=== PATIENT | male | born 1970 | race Hispanic/Latino ===

== ENCOUNTER 2021-05-11 08:41 | Emergency (ER) | payer BC ==
[2021-05-11] MEDS ORDERED: ROCURONIUM 50 MG/5 ML VIAL IV ONE (08:42)
[2021-05-11] MEDS ORDERED: ETOMIDATE 20 MG/10 ML VIAL IV ONE (08:42)
[2021-05-11] MEDS ORDERED: SUCCINYLCHOLINE 20 MG/ML (10 ML) IV ONE (08:42)
[2021-05-11] MEDS ORDERED: LIDOCAINE 2% MPF 5 ML VIAL IJ ONE (08:42)
[2021-05-11] MEDS ORDERED: FOLIC ACID 5 MG/ML VIAL ONE (09:01)
[2021-05-11] MEDS ORDERED: NA CHLORIDE 0.9% 1,000 ML ONE ×2 (09:01→09:07)
[2021-05-11] MEDS ORDERED: Nicardipine/NS 25 MG/250 ML KIT IV ONE (09:07)
--- NOTE | 2021-05-11 09:12 | RAD REPORT ---
EXAM DESCRIPTION: CT - Ct Stroke Brain Wo Cont - 05/11/2021 9:01 am CLINICAL HISTORY: Slurred speech COMPARISON: none TECHNIQUE: Computed axial tomography of the head was obtained. All CT scans are performed using dose optimization technique as appropriate and may include automated exposure control or mA/KV adjustment according to patient size. FINDINGS: 21 millimeter right basal ganglia bleed. Shift of midline structures 3 millimeters to the left. The ventricles are normal in caliber. No extra-axial fluid collection is noted. Fluid within the sinuses/ mastoids is not seen. IMPRESSION: 21 millimeter right basal ganglia bleed Dr Estevez of the emergency room notified 9:03 a.m. on May 11, 2021
[2021-05-11 09:17] LABS: Hematocrit 47.2 % (39.6-49.0); MPV 8.9 fL (7.6-11.3); RBC Red Blood Cell Count 5.54 M/uL (4.33-5.43)
[2021-05-11] MEDS ORDERED: LORazepam 2 MG/ML VIAL ONE (09:17)
[2021-05-11 09:22] LABS: Protime INR 0.96
--- NOTE | 2021-05-11 09:22 | RAD REPORT ---
EXAM DESCRIPTION: Windy Single View05/11/2021 9:15 am CLINICAL HISTORY: cva COMPARISON: none FINDINGS: The lungs appear clear of acute infiltrate. The heart is normal size IMPRESSION: No acute abnormalities displayed
--- NOTE | 2021-05-11 09:39 | EDPHYS ---
Physician Documentation [facility] Name: Savage Miranda Age: 51 yrs Sex: Male : 1970 Arrival Date: 05/11/2021 Time: 08:43 Bed 2 Private MD: ED Physician Alexis Estevez HPI: 05/11 09:23 This 51 yrs old Male presents to ER via Wheelchair with complaints of Trouble benson Talking. 09:23 The patient presents to the emergency department with weakness of the left upper benson extremity, that is mild, left lower extremity, a speech or higher order brain function problem, aphasia, that is moderate, difficulty standing, the patient is off balance, difficult walking, the patient falls to the left, a swallowing problem, difficulty. Onset: The symptoms/episode began/occurred just prior to arrival, this morning. Context: occurred at home. Associated signs and symptoms: Pertinent positives: headache, weakness. Severity of symptoms: At their worst the symptoms were moderate in the emergency department the symptoms are unchanged. Patient's baseline: Neuro: alert and fully oriented, Motor: left-sided weakness, Speech: slow, The patient has a previous history of dm, htn untreated. Current symptoms: dysphasia, paralysis or paresis, of the left arm and left leg, that is moderate. The patient has not experienced similar symptoms in the past. Historical: - Allergies: 09:09 No Known Allergies; ll1 - PMHx: 09:09 Diabetes - IDDM; Hypertension; ll1 - Immunization history:: Adult Immunizations up to date. - Social history:: Smoking status: unknown. - Family history:: not pertinent. - Hospitalizations: : No recent hospitalization is reported. ROS: 09:23 Constitutional: Negative for fever, chills, and weight loss, Eyes: Negative for injury, benson pain, redness, and discharge, ENT: Negative for injury, pain, and discharge, Neck: Negative for injury, pain, and swelling, Cardiovascular: Negative for chest pain, palpitations, and edema, Respiratory: Negative for shortness of breath, cough, wheezing, and pleuritic chest pain, Abdomen/GI: Negative for abdominal pain, nausea, vomiting, diarrhea, and constipation, Back: Negative for injury and pain, : Negative for injury, bleeding, discharge, and swelling, MS/Extremity: Negative for injury and deformity, Skin: Negative for injury, rash, and discoloration, Psych: Negative for depression, anxiety, suicide ideation, homicidal ideation, and hallucinations, Allergy/Immunology: Negative for hives, rash, and allergies, Endocrine: Negative for neck swelling, polydipsia, polyuria, polyphagia, and marked weight changes, Hematologic/Lymphatic: Negative for swollen nodes, abnormal bleeding, and unusual bruising. 09:23 Neuro: Positive for headache, weakness, of the left arm and left leg. Exam: :23 Constitutional: This is a well developed, well nourished patient who is awake, alert, benson and in no acute distress. Head/Face: Normocephalic, atraumatic. Eyes: Pupils equal round and reactive to light, extra-ocular motions intact. Lids and lashes normal. Conjunctiva and sclera are non-icteric and not injected. Cornea within normal limits. Periorbital areas with no swelling, redness, or edema. ENT: Nares patent. No nasal discharge, no septal abnormalities noted. Tympanic membranes are normal and external auditory canals are clear. Oropharynx with no redness, swelling, or masses, exudates, or evidence of obstruction, uvula midline. Mucous membranes moist. Neck: Trachea midline, no thyromegaly or masses palpated, and no cervical lymphadenopathy. Supple, full range of motion without nuchal rigidity, or vertebral point tenderness. No Meningismus. Chest/axilla: Normal chest wall appearance and motion. Nontender with no deformity. No lesions are appreciated. Cardiovascular: Regular rate and rhythm with a normal S1 and S2. No gallops, murmurs, or rubs. Normal PMI, no JVD. No pulse deficits. Respiratory: Lungs have equal breath sounds bilaterally, clear to auscultation and percussion. No rales, rhonchi or wheezes noted. No increased work of breathing, no retractions or nasal flaring. Abdomen/GI: Soft, non-tender, with normal bowel sounds. No distension or tympany. No guarding or rebound. No evidence of tenderness throughout. Back: No spinal tenderness. No costovertebral tenderness. Full range of motion. Male : Normal genitalia with no discharge or lesions. Skin: Warm, dry with normal turgor. Normal color with no rashes, no lesions, and no evidence of cellulitis. Psych: Awake, alert, with orientation to person, place and time. Behavior, mood, and affect are within normal limits. 09:23 ECG was reviewed by the Attending Physician. Vital Signs: 09:10 BP 198 / 122; Pulse 68; Resp 14; Pulse Ox 99% on R/A; ph 09:10 Weight 112.49 kg; ph 09:33 BP 163 / 101; Pulse 93; Resp 13; Temp 97.9; Pulse Ox 99% on 2 lpm NC; jl7 09:40 BP 169 / 111; Pulse 102; Resp 18; Pulse Ox 99% ; jl7 09:45 BP 157 / 103; Pulse 93; Resp 19; Pulse Ox 99% ; jl7 09:50 BP 171 / 108; Pulse 100; Resp 22; Pulse Ox 100% ; jl7 10:15 BP 167 / 101; Pulse 94; Resp 18; Pulse Ox 100% on ETT vent; ph NIH Stroke Scale Scores: 09:05 NIHSS Score: 6 jl7 09:40 NIHSS Score: 7 benson Rowdy Coma Score: 09:26 Eye Response: to voice(3). Verbal Response: confused(4). Motor Response: obeys jl7 commands(6). Total: 13. MDM: 08:49 Patient medically screened. benson 09:23 Data reviewed: vital signs, nurses notes, lab test result(s), EKG, radiologic studies, benson doppler, plain films. Data interpreted: hall monitor: rate is 68 beats/min, rhythm is regular, Pulse oximetry: on room air is 99 %. Test interpretation: by ED physician or midlevel provider: ECG, plain radiologic studies. Counseling: I had a detailed discussion with the patient and/or guardian regarding: the historical points, exam findings, and any diagnostic results supporting the discharge/admit diagnosis, lab results. 05/11 08:53 Order name: Basic Metabolic Panel [facility] 05/11 08:53 Order name: CBC with Diff 05/11 08:53 Order name: Magnesium 05/11 08:53 Order name: Protime (+inr) 05/11 08:53 Order name: Ptt, Activated; Complete Time: 09:41 05/11 08:53 Order name: LFT's; Complete Time: 10:22 05/11 08:53 Order name: NT PRO-BNP; Complete Time: 10:22 05/11 08:53 Order name: Troponin HS; Complete Time: 10:22 [facility] 05/11 08:53 Order name: SARS-COV-2 RT PCR (Document "Date of Onset" if Symptomatic); Complete Time: benson 10:05/11 08:53 Order name: Basic Metabolic Panel; Complete Time: 10:22 EDMS 05/11 08:53 Order name: CBC with Automated Diff; Complete Time: 09:41 EDMS 05/11 08:53 Order name: Magnesium; Complete Time: 10:22 EDMS 05/11 08:53 Order name: Protime (+INR); Complete Time: 09:41 EDMS 05/11 09:21 Order name: Glucose, Ancillary Testing; Complete Time: 09:41 EDMS 05/11 08:53 Order name: CT Stroke Brain w/o Contrast; Complete Time: 09:41 [facility] 05/11 08:53 Order name: Stroke CXR 1 View; Complete Time: 09:41 [facility] 05/11 08:53 Order name: EKG; Complete Time: 08:54 [facility] 05/11 08:53 Order name: Accucheck; Complete Time: 09:09 05/11 08:53 Order name: Cardiac monitoring; Complete Time: 09:09 [facility] 05/11 10:13 Order name: CXR XRAY jl7 05/11 08:53 Order name: EKG - Nurse/Tech; Complete Time: 09:09 05/11 08:53 Order name: IV Saline Lock; Complete Time: 09:09 05/11 08:53 Order name: Labs collected and sent; Complete Time: 09:09 [facility] 05/11 08:53 Order name: NPO; Complete Time: 08:56 benson 05/11 08:53 Order name: O2 Per Protocol; Complete Time: 08:56 [facility] 05/11 08:53 Order name: O2 Sat Monitoring; Complete Time: 08:56 [facility] 05/11 08:53 Order name: Stroke Swallow Screen; Complete Time: 09:24 benson 05/11 09:07 Order name: IV Saline Lock - Large Bore; Complete Time: 09:24 [facility] 05/11 09:10 Order name: [place]; Complete Time: 10:30 [facility] EC:23 Rate is 70 beats/min. QRS [place] is Normal. [place] interval is normal. QRS interval is benson normal. QT interval is normal. No Q waves. T waves are Normal. No ST changes noted. Clinical impression: NSR w/ Non-specific ST/T Changes and No evidence of ischemia. Interpreted by me. Reviewed by me. Administered Medications: :08 Not Given (Duplicate Order): NS 0.9% 1000 ml IV at 1 bolus Per protocol; 1000 mL bolus benson 09:10 Drug: Cardene (niCARdipine) 5 mg/min Route: IV; Rate: per protocol; Site: right forearm;jl7 09:20 Follow up: Rate change 7.5 mg/hr jl7 10:01 Follow up: IV Status: Infusion continued upon transfer jl7 09:15 Drug: Ativan (LORazepam) 0.5 mg Route: IVP; Site: left forearm; ph 10:32 Follow up: Response: No adverse reaction ph 09:20 Drug: foLIC Acid 1 mg Route: IVPB; Site: left forearm; jl7 09:25 Follow up: Response: No adverse reaction; IV Status: Completed infusion jl7 09:20 Drug: NS 0.9% 1000 ml Route: IV; Rate: 75 ml/hr; Site: left forearm; jl7 10:01 Follow up: IV Status: Infusion continued upon transfer jl7 10:07 Drug: Etomidate 20 mg Route: IVP; Site: left forearm; ph 10:31 Follow up: Response: No adverse reaction; Patient is sedated ph 10:07 Drug: Rocuronium 90 mg Route: IVP; Site: left forearm; ph 10:30 Follow up: Response: No adverse reaction ph 10:15 Drug: Versed (midazolam) 4 mg Route: IVP; Site: left forearm; ph 10:31 Follow up: Response: No adverse reaction; Patient is sedated ph 10:27 Not Given (Other Intervention Used): Lidocaine 100 mg IVP once ph 10:28 Not Given (Other Intervention Used): Succinylcholine 100 mg IVP once ph Point of Care Testing: Blood Glucose: : Blood Glucose: 238 mg/dL; jl7 Ranges: Critical Glucose Levels:Adult <50 mg/dl or >400 mg/dl <40 mg/dl or >180 mg/dl Disposition Summary: 05/11/21 09:38 Transfer Ordered Transfer Location: [facility] benson Reason: Higher level of care benson Condition: Serious benson Problem: new benson Symptoms: have improved benson Accepting Physician: to dr koch(05/11/21 10:35) ph Diagnosis - Nontraumatic intracerebral hemorrhage, unspecified - right BG, 21 MM WITH 3 MM SHIFTcha - Essential (primary) hypertension benson - Type 1 diabetes mellitus with hyperglycemia benson - Obesity, unspecified benson Forms: - Medication Reconciliation Form benson - SBAR form benson NIH Stroke Scale - NIH Stroke Score Date: 05/11/2021 Time: 09:05 Total Score = 6 1a. Level of Consciousness (LOC) - 1(Not Alert) 1b. Level of Consciousness (LOC) (Month \\T\\ Age) - 1(One) 1c. LOC Commands (Open \\T\\ Closes Eyes/Product Safety Lead) - 0(Both) 2. Best Gaze (Lateral Gaze Paresis) - 0(Normal) 3. Visual Field Loss - 0(No visual loss) 4. Facial Palsy - 0(Normal) 5a. Left Arm: Motor (10-second hold) - 0(No drift) 5b. Right Arm: Motor (10-second hold) - 0(No drift) 6a. Left Leg: Motor (5-second hold - always test supine) - 0(No drift) 6b. Right Leg: Motor (5-second hold - always test supine) - 0(No drift) 7. Limb Ataxia (finger/nose \\T\\ heel/ortega - test with eyes open) - 0(Absent) 8. Sensory Loss (pinprick arms/legs/face) - 0(Normal) 9. Best Language: Aphasia (description/naming/reading) - 2(Severe aphasia) 10. Dysarthria (speech clarity - read or repeat words) - 2(Severe) 11. Extinction and Inattention (visual/tactile/auditory/spatial/personal) - 0(No abnormality) Initials: jl7 NIH Stroke Scale - NIH Stroke Score Date: 05/11/2021 Time: 09:40 Total Score = 7 1a. Level of Consciousness (LOC) - 0(Alert) 1b. Level of Consciousness (LOC) (Month \\T\\ Age) - 0(Both) 1c. LOC Commands (Open \\T\\ Closes Eyes/Product Safety Lead) - 0(Both) 2. Best Gaze (Lateral Gaze Paresis) - 0(Normal) 3. Visual Field Loss - 0(No visual loss) 4. Facial Palsy - 0(Normal) 5a. Left Arm: Motor (10-second hold) - 2(Drift, some effort against gravity) 5b. Right Arm: Motor (10-second hold) - 0(No drift) 6a. Left Leg: Motor (5-second hold - always test supine) - 1(Drift) 6b. Right Leg: Motor (5-second hold - always test supine) - 0(No drift) 7. Limb Ataxia (finger/nose \\T\\ heel/ortega - test with eyes open) - 2(Present in two limbs) 8. Sensory Loss (pinprick arms/legs/face) - 0(Normal) 9. Best Language: Aphasia (description/naming/reading) - 1(Mild to moderate aphasia) 10. Dysarthria (speech clarity - read or repeat words) - 1(Mild to Moderate) 11. Extinction and Inattention (visual/tactile/auditory/spatial/personal) - 0(No abnormality) Initials: benson Signatures: Dispatcher [employer] Alexis Casey MD MD cha Hall, Patricia RN RN ph Alex Abdi RN RN jl7 Carolina Sanon RN RN ll1 Corrections: (The following items were deleted from the chart) 10:24 09:[address] august knowles cha 10:35 10:[address] august knowles
--- NOTE | 2021-05-11 09:39 | ER ---
Nurse's Notes [facility] Name: Savage Miranda Age: 51 yrs Sex: Male : 1970 Arrival Date: 05/11/2021 Time: 08:43 Bed 2 Private MD: Diagnosis: Nontraumatic intracerebral hemorrhage, unspecified-right BG, 21 MM WITH 3 MM SHIFT;Essential (primary) hypertension;Type 1 diabetes mellitus with hyperglycemia;Obesity, unspecified Presentation: 05/11 09:00 Chief complaint: Brother stated pt having difficulty talking began around 7 am this vg1 morning. Upon viewing pt, pt appears to have left sided facial droop and left side weakness. pt also appears to be drooling. 09:10 Ebola Screen: Patient denies travel to an Ebola-affected area in the 21 days before ll1 illness onset. Risk Assessment: Do you want to hurt yourself or someone else? Patient reports no desire to harm self or others. Onset of symptoms was May 11, 2021. 09:10 Acuity: SENTHIL 2 ll1 09:10 Method Of Arrival: Wheelchair [facility] 09:13 Coronavirus screen:. An acute neurological deficit is present. The patient has been ph moved to a treatment area. Pre-hospital glucose is not applicable to this patient. Initial Sepsis Screen: Does the patient meet any 2 criteria? No. Patient's initial sepsis screen is negative. Does the patient have a suspected source of infection? No. Patient's initial sepsis screen is negative. Triage Assessment: 09:00 The onset of the patients symptoms was more than three but less than six hours ago. vg1 General: Appears uncomfortable, Behavior is cooperative. Pain: Denies pain. EENT: pt appears to be drooling. Neuro: Level of Consciousness is awake, alert, obeys commands, Oriented to person, place, situation. Neuro: Hardwood Floor Layer are weak on left Gait is unsteady, Speech is slurred, Facial droop on left, Denies headache. 09:00 The onset of the patients symptoms was at an unknown time. jl7 Stroke Activation: Symptom onset > 6 hours Physician: Stroke Attending; Name: ; Notified At: ; Arrived At: Physician: Chief Stroke Resident; Name: ; Notified At: ; Arrived At: Physician: Stroke Resident; Name: ; Notified At: ; Arrived At: Physician: ED Attending; Name: Herb; Notified At: 09:00; Arrived At: Physician: ED Resident; Name: ; Notified At: ; Arrived At: Historical: - Allergies: 09:09 No Known Allergies; ll1 - PMHx: 09:09 Diabetes - IDDM; Hypertension; ll1 - Immunization history:: Adult Immunizations up to date. - Social history:: Smoking status: unknown. - Family history:: not pertinent. - Hospitalizations: : No recent hospitalization is reported. Screenin:13 Abuse screen: Denies threats or abuse. Denies injuries from another. Nutritional ph screening: No deficits noted. Tuberculosis screening: No symptoms or risk factors identified. Fall Risk No fall in past 12 months (0 pts). No secondary diagnosis (0 pts). IV access (20 points). Ambulatory Aid- None/Bed Rest/Nurse Assist (0 pts). Gait- Weak (10 pts.). Mental Status- Overestimates/Forgets Limitations (15 pts.). Total Montes Fall Scale indicates High Risk Score (45 or more points). Fall prevention measures have been instituted. Side Rails Up X 2 Placed Close to Nursing Station Frequent Obs/Assessments Occuring Family Present and informed to notify staff if the need to leave the bedside As available patient and family educated on Fall Prevention Program and Strategies. 09:25 The patient has not been NPO before screening. The patient is currently on the jl7 following diet: home The patient is alert, able to follow commands. The patient exhibits slurred or garbled speech. The patient is exhibiting difficulty speaking. The patient does not exhibit difficulty understanding words. The patient is unable to swallow own secretions without drooling or the need for suction. Bedside swallow screening discontinued. Patient kept NPO until cleared by Speech Therapy or Physician. The patient failed the bedside swallow screening. The patient will be kept NPO until cleared by Speech Therapy or Physician. Provider notified of bedside swallow screening results: Alexis Estevez MD. Assessment: 09:05 VAN Scoring: Arm Drift: Patients demonstrates NO arm weakness. Patient is VAN Negative. jl7 09:10 General: Appears distressed, Behavior is anxious, drowsy. Neuro: Level of Consciousness jl7 is lethargic, Oriented to person, Speech is slurred. Cardiovascular: Patient's skin is warm and dry. Rhythm is regular. Respiratory: Airway Respiratory effort is even, pt with snoring respirations noted, nasal trumpet inserted by RT, ABI Aware Respiratory pattern is symmetrical, snoring. Derm: Skin is pink, warm \T\ dry. 09:11 Patient has been NPO before screening. The patient is not alert and/or unable to follow ph commands. The patient exhibits slurred or garbled speech. The patient is exhibiting difficulty speaking. The patient does not exhibit difficulty understanding words. The patient is unable to swallow own secretions without drooling or the need for suction. Bedside swallow screening discontinued. Patient kept NPO until cleared by Speech Therapy or Physician. not given, eval stopped, see above not given, eval stopped, see above The patient failed the bedside swallow screening. The patient will be kept NPO until cleared by Speech Therapy or Physician. Provider notified of bedside swallow screening results: Alexis Estevez MD. T-PA (Activase) Screening: Contraindications: Intracranial hemorrhage and its risk factor and suspicion of subarachnoid bleed: Yes. 09:50 Reassessment: Pt continues with snoring respirations, ERD notified and at bedside. jl7 09:59 Reassessment: [facility] at bedside to transport pt. jl7 10:04 Reassessment: Dr. Estevez and [facility] paramedics preparing for intubation. jl7 10:26 Reassessment: Pt transferred by [facility] to [facility], intubated and sedated. ph Vital Signs: 09:10 BP 198 / 122; Pulse 68; Resp 14; Pulse Ox 99% on R/A; ph 09:10 Weight 112.49 kg; ph 09:33 BP 163 / 101; Pulse 93; Resp 13; Temp 97.9; Pulse Ox 99% on 2 lpm NC; jl7 09:40 BP 169 / 111; Pulse 102; Resp 18; Pulse Ox 99% ; jl7 09:45 BP 157 / 103; Pulse 93; Resp 19; Pulse Ox 99% ; jl7 09:50 BP 171 / 108; Pulse 100; Resp 22; Pulse Ox 100% ; jl7 10:15 BP 167 / 101; Pulse 94; Resp 18; Pulse Ox 100% on ETT vent; ph [place] Coma Score: 09:26 Eye Response: to voice(3). Verbal Response: confused(4). Motor Response: obeys jl7 commands(6). Total: 13. NIH Stroke Scale Scores: 09:05 NIHSS Score: 6 jl7 09:40 NIHSS Score: 7 [facility] ED Course: 08:43 Patient arrived in ED. rg4 08:44 Alexis Estevez MD is Attending Physician. [facility] 08:49 Alex Abdi, PAUL is Primary Nurse. jl7 09:00 CT Stroke Brain w/o Contrast In Process Unspecified. EDMS 09:00 Patient has correct armband on for positive identification. Bed in low position. Call [facility] light in reach. Side rails up X2. telemetry monitor on. Pulse ox on. NIBP on. 09:05 Initial lab(s) drawn, by ED staff, sent to lab. Inserted saline lock: 20 gauge in left ph forearm, using aseptic technique. Blood collected. 09:[address] Estevez with JUSTIN Rubio from the [facility]. eb 09:05 initiated a transfer with Jerry Ledesma from the [facility]. eb 09:07 Initial lab(s) drawn, by nc, sent to lab. Inserted saline lock: 20 gauge in left dh3 forearm, using aseptic technique. Blood collected. 09:[address] Feliz the neuro sharepoint solutions developer with Dr. Estevez for patient transfer eb consultation. 09:09 Missed attempt(s): 18 gauge in right antecubital area. Bleeding controlled, band aid ph applied, catheter tip intact. Inserted saline lock: 20 gauge in right forearm, using aseptic technique. 09:10 Triage completed. ll1 09:10 Arm band placed on Patient placed in an exam room, on a stretcher. ll1 09:10 [facility]. Estevez [facility] Neuro will eb take patient. 09:14 Stroke CXR 1 View In Process Unspecified. EDMS 09:14 Patient has correct armband on for positive identification. Bed in low position. Call light in reach. Side rails up X2. telemetry monitor on. Pulse ox on. NIBP on. 09:16 per JUSTIN Rubio at the transfer center he's having to get his AOC involved there is no ICU eb beds ER holding admissions to try somewhere else in the mean time. 09:17 reinitiated the transfer with Jerry Ledesma Rn from the [facility].eb 09:25 JUSTIN Rubio from the [facility] called to decline the patient in transfer. eb 09:26 connected the stroke team sharepoint solutions developer for [facility] with Dr. Estevez for patient transfer consultation. 09:30 administrative approval given by Jerry Ledesma Rn/ patient has been accepted to [facility] Stroke Unit. Dr. Bethel Redding has accepted the patient in transfer/ report to be called to [phone]. 10:12 Assisted provider with intubation using 7.5 mm ETT via oral route. ET tube secured at ph 25cm at the teeth. Set up intubation tray. Intubated by Alexis Estevez MD Placement verified by CO2 detector w/ + color change, auscultating bilateral breath sounds, End-tidal CO2 montioring Patient tolerated well. Patient transferred, IV remains in place. 10:15 NGT: inserted 16 Fr. via left nare. verified placement of air over stomach, to ph intermittent suction. 10:34 CXR XRAY In Process Unspecified. EDMS Administered Medications: 09:08 Not Given (Duplicate Order): NS 0.9% 1000 ml IV at 1 bolus Per protocol; 1000 mL bolus benson 09:10 Drug: Cardene (niCARdipine) 5 mg/min Route: IV; Rate: per protocol; Site: right forearm;7 09:20 Follow up: Rate change 7.5 mg/hr jl7 10:01 Follow up: IV Status: Infusion continued upon transfer jl 09:15 Drug: Ativan (LORazepam) 0.5 mg Route: IVP; Site: left forearm; ph 10:32 Follow up: Response: No adverse reaction ph 09:20 Drug: foLIC Acid 1 mg Route: IVPB; Site: left forearm; jl7 09:25 Follow up: Response: No adverse reaction; IV Status: Completed infusion jl7 09:20 Drug: NS 0.9% 1000 ml Route: IV; Rate: 75 ml/hr; Site: left forearm; jl7 10:01 Follow up: IV Status: Infusion continued upon transfer jl 10:07 Drug: Etomidate 20 mg Route: IVP; Site: left forearm; ph 10:31 Follow up: Response: No adverse reaction; Patient is sedated ph 10:07 Drug: Rocuronium 90 mg Route: IVP; Site: left forearm; ph 10:30 Follow up: Response: No adverse reaction ph 10:15 Drug: Versed (midazolam) 4 mg Route: IVP; Site: left forearm; ph 10:31 Follow up: Response: No adverse reaction; Patient is sedated ph 10:27 Not Given (Other Intervention Used): Lidocaine 100 mg IVP once ph 10:28 Not Given (Other Intervention Used): Succinylcholine 100 mg IVP once ph Point of Care Testing: Blood Glucose: 09:15 Blood Glucose: 238 mg/dL; jl7 Ranges: Outcome: 09:38 ER care complete, transfer ordered by . benson 10:35 Transferred by helicopter to [facility], Transfer form completed. X-rays sent ph w/ patient. 10:35 Condition: stable 10:35 Instructed on the need for transfer. 10:35 Patient left the ED. ph NIH Stroke Scale - NIH Stroke Score Date: 05/11/2021 Time: 09:05 Total Score = 6 1a. Level of Consciousness (LOC) - 1(Not Alert) 1b. Level of Consciousness (LOC) (Month \T\ Age) - 1(One) 1c. LOC Commands (Open \T\ Closes Eyes/Screen Tender) - 0(Both) 2. Best Gaze (Lateral Gaze Paresis) - 0(Normal) 3. Visual Field Loss - 0(No visual loss) 4. Facial Palsy - 0(Normal) 5a. Left Arm: Motor (10-second hold) - 0(No drift) 5b. Right Arm: Motor (10-second hold) - 0(No drift) 6a. Left Leg: Motor (5-second hold - always test supine) - 0(No drift) 6b. Right Leg: Motor (5-second hold - always test supine) - 0(No drift) 7. Limb Ataxia (finger/nose \T\ heel/otrega - test with eyes open) - 0(Absent) 8. Sensory Loss (pinprick arms/legs/face) - 0(Normal) 9. Best Language: Aphasia (description/naming/reading) - 2(Severe aphasia) 10. Dysarthria (speech clarity - read or repeat words) - 2(Severe) 11. Extinction and Inattention (visual/tactile/auditory/spatial/personal) - 0(No abnormality) Initials: jl7 NIH Stroke Scale - NIH Stroke Score Date: 05/11/2021 Time: 09:40 Total Score = 7 1a. Level of Consciousness (LOC) - 0(Alert) 1b. Level of Consciousness (LOC) (Month \T\ Age) - 0(Both) 1c. LOC Commands (Open \T\ Closes Eyes/Screen Tender) - 0(Both) 2. Best Gaze (Lateral Gaze Paresis) - 0(Normal) 3. Visual Field Loss - 0(No visual loss) 4. Facial Palsy - 0(Normal) 5a. Left Arm: Motor (10-second hold) - 2(Drift, some effort against gravity) 5b. Right Arm: Motor (10-second hold) - 0(No drift) 6a. Left Leg: Motor (5-second hold - always test supine) - 1(Drift) 6b. Right Leg: Motor (5-second hold - always test supine) - 0(No drift) 7. Limb Ataxia (finger/nose \T\ heel/ortega - test with eyes open) - 2(Present in two limbs) 8. Sensory Loss (pinprick arms/legs/face) - 0(Normal) 9. Best Language: Aphasia (description/naming/reading) - 1(Mild to moderate aphasia) 10. Dysarthria (speech clarity - read or repeat words) - 1(Mild to Moderate) 11. Extinction and Inattention (visual/tactile/auditory/spatial/personal) - 0(No abnormality) Initials: benson Signatures: Dispatcher [employer] Alexis Casey MD MD cha Hall, Patricia RN Zhanna Spence ph rg4 Alex Abdi RN RN jl7 Bonita Paredes 3 Maggie Simental Victoria RN RN vg1 Carolina Sanon RN RN ll1 Corrections: (The following items were deleted from the chart) 10:32 09:08 Ativan (LORazepam) 0.5 mg IVP in left forearm ph ph
[2021-05-11 09:45] LABS: ALT/SGPT 41 U/L (12-78); AST/SGOT 12 U/L (15-37); Albumin 3.8 g/dL (3.4-5.0); Alkaline Phosphatase 158 U/L (45-117); BUN Blood Urea Nitrogen 16 mg/dL (7-18); Bicarbonate 27 mmol/L (21-32); Bilirubin Direct 0.1 mg/dL (0-0.2); Bilirubin Total 0.6 mg/dL (0.2-1.0); Glucose Level 226 mg/dL (74-106); Magnesium 2.1 mg/dL (1.8-2.4); NT PRO-BNP 35 pg/mL (<125); Potassium 3.5 mmol/L (3.5-5.1); Protein, Total 7.8 g/dL (6.4-8.2); Sodium Level 138 mmol/L (136-145)
[2021-05-11] MEDS ORDERED: RSI MEDICATION KIT IV ONE (09:46)
[2021-05-11] MEDS ORDERED: MIDAZOLAM HCL 2 MG/2 ML INJ ONE (09:48)
[2021-05-11] MEDS ORDERED: LEVETIRACETAM 500 MG/5 ML VIAL IV ONE (09:49)
[2021-05-11] MEDS ORDERED: NA CHLORIDE 0.9% 100 ML ONE (09:50)
--- NOTE | 2021-05-11 10:41 | RAD REPORT ---
EXAM DESCRIPTION: Windy Single View05/11/2021 10:34 am CLINICAL HISTORY: Device placement endotracheal tube placement IMPRESSION: An endotracheal tube has been inserted with its tip well 1.7 centimeters above the kyle a. Nasogastric tube is been placed into the stomach
[2021-05-11 10:58] VITALS: TEMP 97.9
[2021-05-11 11:26] VITALS: BP 171/108; O2SAT 100
== END 2021-05-11 10:35 | disposition short-term general hospital (02) ==
LOC: ER 08:41
DX: I61.9 Nontraumatic intracerebral hemorrhage, unspecified (principal); I10 Essential (primary) hypertension; E10.65 Type 1 diabetes mellitus with hyperglycemia; E66.9 Obesity, unspecified; R29.706 NIHSS score 6; Z20.822 Contact with and (suspected) exposure to COVID-19
CPT/HCPCS: 96365; 93005; 85025; 80048; 36415; 83735; 85610; 82947; 80076; 85730; 84484; 83880; 70450; 71045 ×2; 31500; 96375; 99285; U0003; J0330; J2250; J1953; J7030 ×2

== ENCOUNTER 2021-05-23 09:39 | Inpatient (IN) | payer BC ==
--- NOTE | 2021-06-07 16:00 | R.PREADM ---
PRE-ADMISSION SCREENING FORM SCREENING DATE AND TIME 06/07/2021 14:45 (LICENSING DIRECTOR) ANTICIPATED REHAB ADMISSION DATE 06/07/2021 REFERRING FACILITY [facility] REFERRAL DATE AND TIME 05/21/2021 14:45 (LICENSING DIRECTOR) REFERRAL ROOM# [id number] ACUTE ADMIT DATE 05/11/2021 HOSPITALIZED IN LAST 60 DAYS? 05/11/21 Previous Rehabilitation(s): No. ACUTE [employer] GUIDANCE COUNSELOR/DC INDUSTRIAL MAINTENANCE TECH [place] ATTENDING PHYSICIAN KEATON JETER MD REFERRING PHYSICIAN KEATON JETER MD REHAB FACILITY [facility] CLINICAL LIAISON Marques Galeano PHYSICIAN REVIEWER Dr. Arun Clements M.D. MR# [id number] NAME SANJUANA SANTORO ADDRESS [address] [facility] PHONE [facility] [address] DATE OF 1970 AGE 51 SSN# [id number] GENDER male MARITAL STATUS PREF. LANGUAGE (IF NON-LAO) BELARUSIAN ADMIT FROM 02 [facility] PRE-HOSPITAL LIVING SETTING 01 - Home (private home/apt. board/care, assisted living, long term, transitional living) HOME TYPE AND DETAILS Type of home: single family house # of steps to enter the residence: 0 # of steps within the residence: 0 # of levels in the residence: 1 PRE-HOSPITAL LIVING WITH Family/Relatives FAMILY SUPPORT Yes PRIMARY FAMILY CONTACT NAME Betina Bowman PRIMARY FAMILY CONTACT PHONE PRIMARY FAMILY CONTACT RELATIONSHIP Spouse PHONE PRIMARY FAMILY CONTACT ON ADM.? no IS PRIMARY FAMILY CONTACT AUTH. REP.? no 1ST EMERGENCY CONTACT Betina Bowman 1ST CONTACT PHONE 1ST CONTACT RELATIONSHIP Spouse PHONE 1ST CONTACT ON ADM. no IS 1ST CONTACT AUTH. REP.? no PHONE 2ND CONTACT ON ADM.? no PATIENT EMPLOYMENT STATUS Employed [employer] PAYOR INFORMATION: 1ST PAYOR NAME [employer] [facility] 1ST PAYOR PHONE [phone] 1ST PAYOR INJURY/ILLNESS DUE TO ACCIDENT? No ANOTHER [employer] RESPONSIBLE? No PRIMARY REHAB/ACUTE DIAGNOSIS: STROKE ONSET DATE 05/11/2021 REHAB IMPAIRMENT CATEGORY (THAO): 01 Stroke (STR) MEETS 60% rule AFFECTED EXTREMITIES: RLE, and RUE PRIMARY DIAGNOSIS-RELATED SURGERIES: TRACHEOSTOMY MICROLARYNGOSCOPY W BILATERAL CA STEROID INJECTION INTERVENTIONS: - Diabetes Monitor blood glucose levels and administer medication as indicated by Physician Diet will be customized to manage diabetic needs. - Intracerebral Hemorrhage Nursing will perform regular neuro checks - HYPERTENSION Blood pressure will be regularly assessed and medications administered as per physician poly gibson. - PEG Tube Manage nutritional intake - Pneumonia pt will be instructed on use of and be encouraged to use incentive spirometry Interval Chest X-Rays as needed Medications will be administered as indicated by physician. Regular OOB activity and exercise to reduced risk for progression of condition - Trach Care Regularly assess pt's trach and ensure proper positioning and airway clearance Mepilex pad below the trach flange velcro collar must be kept tight to 2 finger breadths - Post CVA Depression Medications administered as per physician pt will engage in regular physical exercise RISK FOR COMPLICATIONS: - CARDIC STROKE LEFT SIDED WEAKNESS - DIABETIC COMPLICATIONS Regular monitoring and management of blood glucose levels. - CVA pt has history of CVA. Will monitor blood pressure and manage with medication. - RESPIRATORY acute respiratory failure - Pneumonia pt will be instructed on use of and be encouraged to use incentive spirometry regular OOB activity and exercise to reduce risk Interval Chest X-Rays will be obtained as necessary - Skin Breakdown Nursing will assess skin daily using assessment tool and will place on Skin Breakdown Precautions as Indicated per protocol pt currently high risk for pressure sore - DVT PTT and INR will be monitored to effectively mitigate risk for development of DVT or PE while here. Medications will be administered as per MD Mobility training and regular exercise - Falls Patient will be evaluated for Fall Precautions and will be placed on Fall Precautions as indicated pe r protocol. Educated pt on fall prevention strategies to reduce/eliminate fall risk - Pain Educate patient on pain management strategies Clinical staff will assess patient's pain level every shift per protocol to monitor for pain manageme nt effectiveness - Hypoxia Vitals and O2 saturation will be monitored regularly. Supplemental O2 provided as needed - Cranial Bleed Maintain SBP <130/80mmHg SUMMARY OF ACUTE HOSPITALIZATION: Pt. is a 51 yo Right-handed male. On 05/11/2021 Pt. presented to [facility] with sudden onset of right-side weakness. On 05/11/2021 he was admitted to [facility] with diagnosis STROKE. His impairment category is Stroke 01 - Right Body (Left Brain) (01.2). Pre-morbidly, Pt. was independent/mod-I in Locomotion, Safety Awareness, Social Cognition, Balance, a nd Transfers Control; and he had good Sphincter Control, Self-Care, Communication, and Endurance. Currently, he has deficits of Locomotion, Safety Awareness, Social Cognition, Balance, Transfers Cont rol, Sphincter Control, Self-Care, Communication, and Endurance. Pt. is now referred to [facility] for acute in-patient rehabilitation in order to maximize patient's functional independence in activities of daily living, strength, ROM, and mobi lity. Patient has realistic goal of being discharged at assistance level CGA-toRichard to reside at Home with Family/Relatives. 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) Dysphagia (R13.1) Hemiplegia and hemiparesis following cerebral infarction affecting left non-dominant side (I69.354) Essential (primary) hypertension (I10) Nontraumatic intracerebral hemorrhage, unspecified (I61.9) Other shock (R57.8) Nontraumatic intracerebral hemorrhage in hemisphere, subcortical (I61.0) Restlessness and agitation (R45.1) Other obesity due to excess calories (E66.09) MEDICATION ALLERGIES: PENICILLIN ENVIRONMENTAL ALLERGIES: - Substance Allergies None Known - Other Allergies None Known CODE STATUS: Full code WEIGHT/HEIGHT/BMI: WEIGHT 230 lbs HEIGHT 5' 10 BMI 33 DIET: - Diet Type Regular - Diet - Solid Texture Regular - Diet - Liquid Texture Regular - Tube Feed N/A REVIEW OF SYSTEMS: - Gen Alert and awake Lying in bed No apparent distress Oriented to: person, time, and place - Vital Signs Temperature: 99.8 F SBP/DBP: 134/71 Pulse: 67 Resp: 17 Vital signs stable, afebrile - CVS RRR VITAL SIGNS Temperature: 99.8 F SBP/DBP: 134/71 Pulse: 67 Resp: 17 Vital signs stable, afebrile MEDICATIONS/TREATMENT: Other- See attached MAR (Medication Administration Record). CURRENT SPHINCTER CONTROL: Pre-hospital bladder status: unspecified # of bladder accidents in the last 7 days prior to screenin Pre-hospital bowel status: unspecified # of bowel accidents in the last 7 days prior to screenin Last Bowel Movement Date: 05/21/2021 CURRENT LOCOMOTION STATUS: distance walked 5 feet DETAILED CURRENT FUNCTIONAL STATUS: - Bladder accident frequency: 7-Ind - No accidents in the past 7 days - Bowel accident frequency: 7-Ind - No accidents in the past 7 days - Walking score based on distance walked: 0(N/A) score based on distance walked: 1(<=50ft) - Wheelchair score based on distance traveled: 0(N/A) QI SCORES: - Self-Care A. Eating 09-Not applicable B. Oral hygiene 02-Substantial/maximal assistance C. Toileting hygiene 02-Substantial/maximal assistance E. Shower/bathe self 01-Dependent F. Upper body dressing 02-Substantial/maximal assistance G. Lower body dressing 01-Dependent H. Putting on/taking off footwear 88-Not attempted due to medical condition or safety concerns - Mobility A. Roll left and right 03-Partial/moderate assistance B. Sit to lying 03-Partial/moderate assistance C. Lying to sitting on side of bed 03-Partial/moderate assistance D. Sit to stand 03-Partial/moderate assistance E. Chair/ivv-oh-awndn transfer 01-Dependent F. Toilet transfer 01-Dependent G. Car transfer 88-Not attempted due to medical condition or safety concerns I. Walk 10 feet 02-Substantial/maximal assistance J. Walk 50 feet with two turns 88-Not attempted due to medical condition or safety concerns K. Walk 150 feet 88-Not attempted due to medical condition or safety concerns L. Walking 10 feet on uneven surfaces 88-Not attempted due to medical condition or safety concerns M. 1 step (curb) 88-Not attempted due to medical condition or safety concerns N. 4 steps 88-Not attempted due to medical condition or safety concerns O. 12 steps 88-Not attempted due to medical condition or safety concerns P. Picking up object 88-Not attempted due to medical condition or safety concerns R. Wheel 50 feet with two turns 88-Not attempted due to medical condition or safety concerns S. Wheel 150 feet 88-Not attempted due to medical condition or safety concerns - Bladder and Bowel Bladder continence Bowel continence - Endurance Poor - Balance Poor - Safety Awareness Poor CURRENT FUNC. DEFICITS: Mobility, Endurance, Balance, Safety Awareness, and Self-Care HISTORY OF FALLS. HAS THE PATIENT HAD TWO OR MORE FALLS IN THE PAST YEAR OR ANY FALL WITH INJURY IN T HE PAST YEAR?: Yes PRIOR SURGERY. DID THE PATIENT HAVE MAJOR SURGERY DURING THE 100 DAYS PRIOR TO ADMISSION?: Yes THERAPY NOTES FROM ACUTE CARE: Attached. SPECIAL NEEDS: - Safety Concerns Skin breakdown precautions needed due to skin breakdown risk BALLANCE PRECAUTIONS: - Weight Bearing Precaution WBAT right LE PATIENT NEEDS ACTIVE AND ONGOING THERAPEUTIC INTERVENTION OF MULTIPLE THERAPY DISCIPLINES, INCLUDING: - Dietary and Nutrition Adequate Nutrition. Nutritional Education. Nutritional Supplements. Evaluate and Treat. - Occupational Therapy Cognitive Retraining. Visual Perceptual Training. Patient/Family Education. ADL Training. Safety Awar eness. Evaluate and Treat. Adaptive Equipment. - Speech Therapy Cognitive Training. Expressive Language Skills. Memory Strategies. Receptive Language Skills. Evaluat e and Treat. Speech Intelligibility Training. - Physical Therapy Mobility Training. Gait Training. Safety Awareness. Transfer Training. Balance Training. Evaluate and Treat. LE Strengthening. Patient/Family Education. PATIENT NEEDS CLOSE MEDICAL SUPERVISION BY A REHABILITATION PHYSICIAN FOR: Coordination of Treatment Team Medical and Co-Morbidity Management Diabetes Management Pain Management Post-Op Complications DVT Management PATIENT REQUIRES 24X7 REHAB NURSING FOR MEDICAL AND FUNCTIONAL MGT. OF THE FOLLOWING DEFICITS: Disease Management Medication Management Patient/Family Education Providing Safe Environment Bowel and Bladder Management Pain Management PATIENT REQUIRES INTENSIVE, COORDINATED INTERDISCIPLINARY APPROACH TO REHAB: Arranging Home Equipment/Services Discharge Planning Family Intervention/Training Order Takers Supervisor/Case Management PATIENT REHAB POTENTIAL: Mehreen SANTORO is able and expected to receive 3 hours of individualized therapy daily on at least 5 of e very 7 days Mehreen SANTORO's prognosis for significant practical improvement within a reasonable period of time appea rs Good Expected level of measurable improvement will be of a practical value to Mehreen SANTORO's functional capa city or adaptations to impairments Has a viable Discharge Plan Medically appropriate; condition is sufficiently stable to participate in intensive rehab program DISCHARGE PLAN: - Estimated Length of Stay (days) 21. - Consensus on plan Discharge plan has been discussed with primary caregiver. Patient/Family is in agreement with the kori n. Primary caregiver is in agreement with the plan. - Patient/Family Goals Return home with assistance. - Planned Living Setting Upon Discharge Home, to live with Family/Relatives. Transitional Living. RECOMMENDED CARE LEVEL: IRF RECOMMENDATION DETAILS: Recommended Admission to Comprehensive Rehabilitation Program to Increase Functional [place] SCREENER'S COMPLETENESS CONFIRMATION: - Screening Confirmation The patient data collection on this preadmission screening form is finished PHYSICIANS REVIEW AND ADMISSION DETERMINATION Admit - Based on my review of the Pre-Admission Screening results, in my medical judgment and experie nce, I concur with the findings and recommend admission to [facility], as this patient requires an IRF level of care. SIGNATURE PANEL: Framing Consultant - [electronically] signed by Marques Galeano on 06/07/2021 at 15:40 (LICENSING DIRECTOR) Framing Consultant - [electronically] signed by Sergio Roldan PT on 06/07/2021 at 15:56 (LICENSING DIRECTOR) Physician Reviewer - [electronically] signed by Dr. Arun Clements M.D. on 06/07/2021 at 15:59 (LICENSING DIRECTOR )
--- OUTSIDE RECORDS SUMMARY | 2021-06-07 23:39 | XMS REPORT | Continuity of Care Document ---
:[address] [facility] [place], [place] t Address [address] [place] [address] Care Team Providers Name Role Phone MALORIE Attending Clinician Unavailable Neo MCLAUGHLIN Attending Clinician Payers Payer Name Policy Type Policy Number Effective Date Expiration Date S blue BCBSTX BLUE [id number] 2021 ESSENTIALS/BLUE 00:00:00 ESSENTIALS ACCESS HMO Problems This patient has no known problems. Allergies, Adverse Reactions, Alerts This patient has no known allergies or adverse reactions. Social History Social Habit Start Date Stop Date Quantity Comments Source Sex Assigned At [birth year] [facility] 00:00:00 00:00:00 Smoking Status Start Date Stop Date Source Tobacco smoking consumption unknown [facility] Medications This patient has no known medications. Procedures This patient has no known procedures. Encounters Start End Encounter Admission Attending Care Care Encounter Source Date/Time Date/Time Type Type Clinicians Facility Department ID 2021-05-21 [facility] [id number] [place] 13:05:06 [facility] 2021-05-23 2021-05-23 Outside [facility] 6400 [id number] [place] 00:00:00 00:00:[address] [id number] [facility] [id number] Results This patient has no known results.
[2021-06-08] MEDS ORDERED: ACETAMINOPHEN 325 MG TABLET FT PRN (00:28)
[2021-06-08] MEDS ORDERED: HYDROCORTISONE 1 % OINT 30GM TOP PRN (00:34)
[2021-06-08] MEDS ORDERED: GABAPENTIN 250 MG FT SCH ×2 (00:45→05:18)
[2021-06-08] MEDS ORDERED: D50W 25 GM/50 ML SYRINGE IV PRN ×4 (00:46→06:54)
[2021-06-08] MEDS ORDERED: GLUCAGON 1 MG/VIAL IM PRN ×4 (00:46→06:54)
[2021-06-08] MEDS ORDERED: POLYVINYL ALCOHOL 1.4% 15 ML EACH EYE PRN (01:02)
[2021-06-08] MEDS ORDERED: SODIUM CHLORIDE 3% INHALATION 4 ML VIAL.NEB IH SCH ×2 (02:00→08:00)
[2021-06-08] MEDS: ALBUTEROL 2.5 MG/3 ML NEB SOL NEB SCH ×5 (02:35→20:05)
[2021-06-08 04:23] LABS: Urine Appearance CLEAR (Clear); Urine Bilirubin NEGATIVE (Negative); Urine Blood NEGATIVE (Negative); Urine Color YELLOW (Yellow); Urine Glucose NEGATIVE (Negative); Urine Protein NEGATIVE (Negative)
[2021-06-08 04:35] LABS: Urine Bacteria 20-50 /HPF (NONE SEEN); Urine RBC <5 /HPF (NONE SEEN)
[2021-06-08] MEDS: INSULIN -REGULAR HUMAN 50 UNIT/0.5 ML ML SQ SCH ×4 (07:30→19:50)
[2021-06-08] MEDS ORDERED: INSULIN LISPRO 100 UNIT/1 ML SQ SCH ×2 (07:30→17:00)
[2021-06-08] MEDS: SODIUM CHLORIDE 3% IH SCH ×2 (08:00→16:00)
[2021-06-08] MEDS: INSULIN GLARGINE 100 UNIT/ML SQ SCH (08:00)
[2021-06-08] MEDS ORDERED: DOCUSATE NA 100 MG CAP PO SCH (08:00)
[2021-06-08] MEDS ORDERED: AMLODIPINE 10 MG TAB FT SCH (08:00)
[2021-06-08] MEDS ORDERED: DULOXETINE 30 MG CAP PO SCH (08:00)
[2021-06-08] MEDS ORDERED: POLYETHYL GLY 3350 17 GM/DOSE FT SCH (08:00)
[2021-06-08] MEDS: INSULIN LISPRO 100 UNIT/1 ML SQ SCH ×2 (08:00→11:43)
[2021-06-08 08:23] LABS: Absolute Lymphocytes (CBC) 1.9 K/uL (0.7-4.9); Lymphocytes % 21.5 % (15.3-44.8); RBC Red Blood Cell Count 3.85 M/uL (4.33-5.43)
[2021-06-08 08:46] LABS: Albumin 2.6 g/dL (3.4-5.0); BUN Blood Urea Nitrogen 12 mg/dL (7-18); Bicarbonate 32 mmol/L (21-32); Glucose Level 112 mg/dL (74-106); Potassium 3.9 mmol/L (3.5-5.1); Prealbumin 15.8 mg/dL (20-40); Sodium Level 139 mmol/L (136-145)
[2021-06-08 08:55] LABS: Blood Morphology Comment NOT SEEN (NOT SEEN); Platelet Estimate ADEQ
[2021-06-08] MEDS: [UNRECOGNIZED DRUG - OTHER] FT SCH ×2 (09:00→14:00)
[2021-06-08] MEDS ORDERED: DOCUSATE NA 100 MG CAP PO PRN (09:56)
[2021-06-08] MEDS ORDERED: POLYETHYL GLY 3350 17 GM/DOSE FT PRN (10:13)
[2021-06-08] MEDS: ASPIRIN 81 MG CHEWABLE TABLET FT SCH (10:46)
[2021-06-08] MEDS: LOSARTAN POTASSIUM 50 MG TABLET FT SCH ×2 (10:47→19:28)
--- NOTE | 2021-06-08 17:03 | R.HP ---
HISTORY AND PHYSICAL FACILITY: [facility] ENCOUNTER DATE AND TIME: 06/08/2021 16:55 (GIZZARD PEELER) MR#: [id number] NAME SANJUANA SANTORO ADDRESS: [address] [facility]: [place] [address] [address] PHONE: DATE OF : 1970 AGE: 51 SSN# [id number] GENDER: Male MARITAL STATUS PRE-HOSPITAL LIVING SETTING 01 - Home (private home/apt. board/care, assisted living, residential, transitional living) PRE-HOSPITAL LIVING WITH Family/Relatives ENCOUNTER PHYSICIAN: Dr. Arun Clements M.D. REFERRING DOCTOR: KEATON JETER MD DATE OF ADMISSION: 06/08/2021 16:55 (GIZZARD PEELER) REFERRING FACILITY [facility] HOME TYPE AND DETAILS: Type of home: single family house # of steps to enter the residence: 0 # of steps within the residence: 0 # of levels in the residence: 1 ONSET DATE: 05/11/2021 PRIMARY DIAGNOSIS-RELATED SURGERIES: TRACHEOSTOMY MICROLARYNGOSCOPY W BILATERAL CA STEROID INJECTION HISTORY OF PRESENT ILLNESS (HPI): Pt. is a 51 yo Right-handed male. On 05/11/2021 Pt. presented to [facility] with sudden onset of right-side weakness. On 05/11/2021 he was admitted to [facility] with diagnosis STROKE. His impairment category is Stroke 01 - Right Body (Left Brain) (01.2). Pre-morbidly, Pt. was independent/mod-I in Locomotion, Safety Awareness, Social Cognition, Balance, a nd Transfers Control; and he had good Sphincter Control, Self-Care, Communication, and Endurance. Currently, he has deficits of Locomotion, Safety Awareness, Social Cognition, Balance, Transfers Cont rol, Sphincter Control, Self-Care, Communication, and Endurance. Pt. is now referred to [facility] for acute in-patient rehabilitation in order to maximize patient's functional independence in activities of daily living, strength, ROM, and mobi lity. Patient has realistic goal of being discharged at assistance level CGA-to-Richard to reside at Home with Family/Relatives. 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) Dysphagia (R13.1) Hemiplegia and hemiparesis following cerebral infarction affecting left non-dominant side (I69.354) Essential (primary) hypertension (I10) Nontraumatic intracerebral hemorrhage, unspecified (I61.9) Other shock (R57.8) Nontraumatic intracerebral hemorrhage in hemisphere, subcortical (I61.0) Restlessness and agitation (R45.1) Other obesity due to excess calories (E66.09) SOCIAL HISTORY: - Home Living Family/Relatives REVIEW OF SYSTEMS: - Gen No Chills Fatigue No Fever - Eyes No Double Vision No itchiness - ENMT Difficulty Swallowing Trach collar is in place - CVS No Chest Discomfort Fatigue No Weight Gain - Resp Cough No Shortness of Breath congestion - GI Continent No Abdominal Pain No Constipation No Diarrhea - Continent No Kidney Pain No Painful Urination No Urinary Urgency - MSK No Joint Pain Muscle Cramps Stiffness - Skin No Itching No Rash No Suspicious Lesions - Neuro Coordination Difficulty No Difficulty with Concentration No Memory Loss No Seizures Weakness - Psych No Anxiety No Depression No HIV Exposure No Persistent Infections No Seasonal Allergies - Endo No Cold/Heat Intolerance No Excessive Hunger No Excessive Thirst No Excessive Urination PHYSICAL EXAM - Gen Alert and awake Lying in bed No apparent distress Oriented to: person, time, and place - Skin No breakdown No abnormalities - Eyes No abnormalities - ENMT Trach collar is in place - Neck Trach collar is in place - CVS RRR - Chest Upper airway congestion. - Resp Bilateral congestion. - Abd Soft - GI Non distended Deferred - No abnormalities - Ext Dense left arm paresis. - MSK Dense left arm paresis. - Neuro 0/5 strength left lower extremity. - Psych No abnormalities VITAL SIGNS Temperature: 97.8 F SBP/DBP: 133/69 Pulse: 66 Resp: 16 NURSING: - Shower allowing shower - Bladder care per protocol - Skin care per protocol PRECAUTIONS: - Weight Bearing Precaution WBAT right LE ACTIVITIES OOB only with supervision QI SCORES: - Self-Care A. Eating 09-Not applicable B. Oral hygiene 02-Substantial/maximal assistance C. Toileting hygiene 02-Substantial/maximal assistance E. Shower/bathe self 01-Dependent F. Upper body dressing 02-Substantial/maximal assistance G. Lower body dressing 01-Dependent H. Putting on/taking off footwear 88-Not attempted due to medical condition or safety concerns - Mobility A. Roll left and right 03-Partial/moderate assistance B. Sit to lying 03-Partial/moderate assistance C. Lying to sitting on side of bed 03-Partial/moderate assistance D. Sit to stand 03-Partial/moderate assistance E. Chair/kni-er-yyybk transfer 01-Dependent F. Toilet transfer 01-Dependent G. Car transfer 88-Not attempted due to medical condition or safety concerns I. Walk 10 feet 02-Substantial/maximal assistance J. Walk 50 feet with two turns 88-Not attempted due to medical condition or safety concerns K. Walk 150 feet 88-Not attempted due to medical condition or safety concerns L. Walking 10 feet on uneven surfaces 88-Not attempted due to medical condition or safety concerns M. 1 step (curb) 88-Not attempted due to medical condition or safety concerns N. 4 steps 88-Not attempted due to medical condition or safety concerns O. 12 steps 88-Not attempted due to medical condition or safety concerns P. Picking up object 88-Not attempted due to medical condition or safety concerns R. Wheel 50 feet with two turns 88-Not attempted due to medical condition or safety concerns S. Wheel 150 feet 88-Not attempted due to medical condition or safety concerns - Bladder and Bowel Bladder continence Bowel continence - Endurance Poor - Balance Poor - Safety Awareness Poor CURRENT FUNC. DEFICITS: Mobility, Endurance, Balance, Safety Awareness, and Self-Care MEDICATIONS: - Other See attached MAR (Medication Administration Record) ASSESSMENT: Pt. is a 51 yo Right-handed male.On 05/11/2021 Pt. presented to [facility] with sudden onset of right-side weakness.On 05/11/2021 he was admitted to [facility] with diagnosis STROKE.His impa irment category is Stroke 01 - Right Body (Left Brain) (.2).Pre-morbidly, Pt. was independent/mod- I in Locomotion, Safety Awareness, Social Cognition, Balance, and Transfers Control; and he had good Sphincter Control, Self-Care, Communication, and Endurance.Currently, he has deficits of Locomotion, Safety Awareness, Social Cognition, Balance, Transfers Control, Sphincter Control, Self-Care, Communi cation, and Endurance.Pt. is now referred to [facility] for acute in-patient r ehabilitation in order to maximize patient's functional independence in activities of daily living, s trength, ROM, and mobility.- Rehab Goal Patient has realistic goal of being discharged at assistance level CGA-to-Richard to reside at Home with Family/Relatives. for Dementia, TBI, Stroke, or others - Physical Therapy Gait dysfunction - to improve, our physical therapists will perform initial evaluation of pt's status upon admission and devise an individualized program for Gait Training, and Wheel Chair mobility Inability to transfer - to improve, our physical therapists will perform initial evaluation of pt's s tatus upon admission and devise an individualized program for Bed mobility Need for home safety evaluation - to improve, our physical therapists will perform initial evaluation of pt's status upon admission and devise an individualized program for Home Evaluation Need in caregiver upon discharge - to improve, our physical therapists will perform initial evaluatio n of pt's status upon admission and devise an individualized program for Caregiver Training New precaution - to improve, our physical therapists will perform initial evaluation of pt's status u axel admission and devise an individualized program for Patient precaution education Poor balance - to improve, our physical therapists will perform initial evaluation of pt's status upo n admission and devise an individualized program for Balance Training Poor endurance - to improve, our physical therapists will perform initial evaluation of pt's status u axel admission and devise an individualized program for Endurance Training Weakness - to improve, our physical therapists will perform initial evaluation of pt's status upon ad mission and devise an individualized program for Aquatic Therapy, Neuromuscular Reeducation, and Stre ngthening Achieving independence - to improve, our physical therapists will perform initial evaluation of pt's status upon admission and devise an individualized program for Community Reintegration Activities - Occupational Therapy ADL deficits - to improve, our occupation therapists will perform initial evaluation of pt's status u axel admission and devise an individualized program for Bathing, Bed mobility, Community Reintegration , Cooking, Dressing, Eating, Fine Motor Skills, Grooming, Homemaking, Kitchen Mobility, Laundry, Stephie ent Education, Safety Awareness, Splinting - Positioning, Transfers(Toilet, Tub, Shower), and Wheel C hair Management Cognitive deficits - to improve, our occupation therapists will perform initial evaluation of pt's st atus upon admission and devise an individualized program for Cognition - orientation Need for acute care nurse - to improve, our occupation therapists will perform initial evaluation of pt's s tatus upon admission and devise an individualized program for Caregiver Training Weakness - to improve, our occupation therapists will perform initial evaluation of pt's status upon admission and devise an individualized program for Aquatic Therapy, Balance, Endurance, UE ROM, and U E strengthening MEDICAL PLAN: - Diet Type Start Regular - Diet - Liquid Texture Start Regular - Tube Feed Start N/A - Bladder care per protocol - Weight Bearing Precaution WBAT left LE - Skin care per protocol - Other See attached MAR (Medication Administration Record) - Diet - Solid Texture Regular - Shower shower DISCHARGE PLAN: - Estimated Length of Stay (days) 21. - Consensus on plan Discharge plan has been discussed with primary caregiver. Patient/Family is in agreement with the kori n. Primary caregiver is in agreement with the plan. - Patient/Family Goals Return home with assistance. - Planned Living Setting Upon Discharge Home, to live with Family/Relatives. Transitional Living. SIGNATURE PANEL: (GIZZARD PEELER)
[2021-06-08] MEDS: GLUCERNA 1.5 CAL 1,000 ML BOT FT SCH ×2 (17:32→19:57)
[2021-06-08] MEDS: APIXABAN 2.5 MG TABLET PO SCH (19:28)
[2021-06-08] MEDS: GABAPENTIN 300 MG CAP PO SCH (19:28)
[2021-06-08] MEDS ORDERED: [UNRECOGNIZED DRUG - OTHER] FT SCH (21:00)
[2021-06-09] MEDS: ALBUTEROL 2.5 MG/3 ML NEB SOL NEB SCH ×6 (04:30→20:20)
[2021-06-09] MEDS: INSULIN -REGULAR HUMAN 50 UNIT/0.5 ML ML SQ SCH ×4 (07:30→20:17)
[2021-06-09] MEDS ORDERED: AMLODIPINE 5 MG TAB FT SCH (08:00)
[2021-06-09] MEDS: SODIUM CHLORIDE 3% IH SCH ×3 (08:00→16:00)
[2021-06-09] MEDS: INSULIN GLARGINE 100 UNIT/ML SQ SCH (08:00)
[2021-06-09] MEDS: LOSARTAN POTASSIUM 50 MG TABLET FT SCH ×3 (08:00→20:18)
[2021-06-09] MEDS: ASPIRIN 81 MG CHEWABLE TABLET FT SCH (08:56)
[2021-06-09] MEDS: APIXABAN 2.5 MG TABLET PO SCH ×2 (08:57→20:18)
[2021-06-09] MEDS: GABAPENTIN 300 MG CAP PO SCH ×2 (08:57→20:18)
[2021-06-09] MEDS: GLUCERNA 1.5 CAL 1,000 ML BOT FT SCH ×4 (09:00→20:18)
[2021-06-09] MEDS: AMLODIPINE 5 MG TAB FT SCH (12:00)
[2021-06-10] MEDS: ALBUTEROL 2.5 MG/3 ML NEB SOL NEB SCH ×6 (00:30→20:14)
[2021-06-10] MEDS: SODIUM CHLORIDE 3% IH SCH ×4 (00:30→16:46)
[2021-06-10] MEDS: INSULIN -REGULAR HUMAN 50 UNIT/0.5 ML ML SQ SCH ×4 (07:30→20:09)
--- NOTE | 2021-06-10 07:35 | RAD REPORT ---
EXAM DESCRIPTION: RAD - Chest Single View - 06/10/2021 6:46 am CLINICAL HISTORY: r/o pneumonia COMPARISON: Chest Single View dated 05/11/2021; Chest Single View dated 05/11/2021; Ct Stroke Brain Wo Cont dated 05/11/2021 FINDINGS: Lines: Tracheostomy. Interval extubation and removal of the enteric tube. Lungs: No evidence of edema or pneumonia. Pleural: No significant pleural effusions or pneumothorax. Cardiac: The heart size is within normal limits. Bones: No acute fractures. Other: IMPRESSION: No acute cardiopulmonary disease.
[2021-06-10] MEDS: LOSARTAN POTASSIUM 50 MG TABLET FT SCH ×2 (08:11→20:09)
[2021-06-10] MEDS: APIXABAN 2.5 MG TABLET PO SCH ×2 (08:11→20:09)
[2021-06-10] MEDS: ASPIRIN 81 MG CHEWABLE TABLET FT SCH (08:11)
[2021-06-10] MEDS: GABAPENTIN 300 MG CAP PO SCH ×2 (08:11→20:09)
[2021-06-10] MEDS: GLUCERNA 1.5 CAL 1,000 ML BOT FT SCH ×4 (08:12→20:10)
[2021-06-10] MEDS: AMLODIPINE 5 MG TAB FT SCH (13:33)
[2021-06-10] MEDS ORDERED: D10W 125 ML IV PRN (14:39)
--- NOTE | 2021-06-10 16:48 | PAPE ---
POST ADMISSION PHYSICIAN EVALUATION PATIENT: [facility] MR# [id number] REFERRING DOCTOR KEATON JETER MD EVALUATION DATE AND TIME 06/10/2021 16:39 (METROLOGY TECHNICIAN) NAME SANJUANA SANTORO DATE OF 1970 AGE 51 PHONE N# [id number] GENDER male EVALUATING PHYSICIAN Dr. Arun Clements M.D. ADMISSION DIAGNOSIS: STROKE ONSET DATE 05/11/2021 POST-ADMISSION FUNCTIONAL/MEDICAL STATUS: - Bladder Same accident frequency: 7-Ind - No accidents in the past 7 days - Bowel Same accident frequency: 7-Ind - No accidents in the past 7 days - Walking Same score based on distance walked: 0(N/A) Same score based on distance walked: 1(<=50ft) - Wheelchair Same score based on distance traveled: 0(N/A) STATUS CHANGE EVALUATION: No change in Functional or Medical Status is identified compared with Pre-Admission screening. PATIENT NEEDS CLOSE MEDICAL SUPERVISION BY A REHABILITATION PHYSICIAN FOR: Coordination of Treatment Team Medical and Co-Morbidity Management Diabetes Management Pain Management Post-Op Complications DVT Management PATIENT REQUIRES 24X7 REHAB NURSING FOR MEDICAL AND FUNCTIONAL MGT. OF THE FOLLOWING DEFICITS: Disease Management Medication Management Patient/Family Education Providing Safe Environment Bowel and Bladder Management Pain Management PATIENT REQUIRES INTENSIVE, COORDINATED INTERDISCIPLINARY APPROACH TO REHAB: Arranging Home Equipment/Services Discharge Planning Family Intervention/Training State Director/Case Management LIST OF IDENTIFIED AND POTENTIAL PROBLEMS: Alteration in leisure activities Bladder, Incontinence Bowel, Incontinence Infection, Actual or Potential Mobility Impaired Pain, Alteration in Comfort Self Care Deficit Skin Integrity, Actual or Potential Urinary Tract Infection (UTI), Actual or Potential RISK FOR COMPLICATIONS - CARDIC STROKE. LEFT SIDED WEAKNESS. - DIABETIC COMPLICATIONS Regular monitoring and management of blood glucose levels. - CVA pt has history of CVA. Will monitor blood pressure and manage with medication. - RESPIRATORY acute respiratory failure. - Pneumonia pt will be instructed on use of and be encouraged to use incentive spirometry. regular OOB activity a nd exercise to reduce risk. Interval Chest X-Rays will be obtained as necessary. - Skin Breakdown Nursing will assess skin daily using assessment tool and will place on Skin Breakdown Precautions as Indicated per protocol. pt currently high risk for pressure sore. - DVT PTT and INR will be monitored to effectively mitigate risk for development of DVT or PE while here. M edications will be administered as per MD. Mobility training and regular exercise. - Falls Patient will be evaluated for Fall Precautions and will be placed on Fall Precautions as indicated pe r protocol. Educated pt on fall prevention strategies to reduce/eliminate fall risk. - Pain Educate patient on pain management strategies. Clinical staff will assess patient's pain level every shift per protocol to monitor for pain management effectiveness. - Hypoxia Vitals and O2 saturation will be monitored regularly. Supplemental O2 provided as needed. - Cranial Bleed Maintain SBP <130/80mmHg. INTERVENTIONS - Diabetes Monitor blood glucose levels and administer medication as indicated by Physician. Diet will be custom ized to manage diabetic needs. - Intracerebral Hemorrhage Nursing will perform regular neuro checks. - HYPERTENSION Blood pressure will be regularly assessed and medications administered as per physician poly gibson. - PEG Tube Manage nutritional intake. - Pneumonia pt will be instructed on use of and be encouraged to use incentive spirometry. Interval Chest X-Rays as needed. Medications will be administered as indicated by physician. Regular OOB activity and exerc ise to reduced risk for progression of condition. - Trach Care Regularly assess pt's trach and ensure proper positioning and airway clearance. Mepilex pad below the trach flange. velcro collar must be kept tight to 2 finger breadths. - Post CVA Depression Medications administered as per physician. pt will engage in regular physical exercise. PATIENT COULD BE AT RISK FOR COMPLICATIONS FROM ADVERSE MEDICAL CONDITIONS DUE TO HIS/HER COMORBIDITI ES AND THE RIGORS OF THE INTENSIVE REHABILLITATION PROGRAM. METHODS OR INTERVENTIONS TO AVOID COMPLIC ATIONS INCLUDE: - Deep Vein Thrombosis (DVT) Prophylaxis therapy for prevention . Sequential Compression Device (SCD). TE D Hose. - Bleeding Stroke patients assessed for lethargy or change in status. - Infection Clinical staff to assess and manage the signs and symptoms of infection including fever, redness, war mth, etc. - Urinary Tract Infection - Aspiration Clinical staff will assess and manage coughing, drooling, congestion. - Falls Patient will be evaluated for Fall Precautions and will be placed on Fall Precautions as indicated pe r protocol. - Skin Breakdown Nursing will assess skin daily using assessment tool and will place on Skin Breakdown Precautions as indicated per protocol. - Pain Clinical staff may employ non-medication methods such as massage, distraction, decrease stimulus, etc . as needed. Clinical staff will assess patient's pain level every shift per protocol to assess and e nsure pain management effectiveness. Medications will be given and the pain level re-assessed. PRELIMINARY PLAN OF CARE: - Physical Therapy Patient needs Physical Therapy for a daily minimum of 1.5 hours at least 5 out of 7 days, to improve: Mobility, Strengthening, Transfers, Stretching, ROM, Endurance, Ability to manage stairs, Gait, and Balance. - Speech Therapy Patient needs Speech Therapy for a daily minimum of 0.5 hours at least 5 out of 7 days, to improve: S wallowing, Cognition, Language Skills, and Compensatory Strategies. - Rehabilitation Nursing Patient requires 24x7 Rehabilitation Nursing for: Pain Issues, Identifying and preventing risk factor s, Monitoring and reporting current medical conditions, Assisting with ambulation and transfer, Yunior ting with all ADL-s, Teaching patients about disease process and medications, Family teaching, Provid ing safe environment, Bowel and Bladder Issues, Skin Integrity, and Medication Management. Patient needs State Director and/or Case Management for: Discharge Planning, Arranging Home Equipmen t or Services, and Family Interventions. - Dietary and Nutrition Services Patient needs Dietary and Nutrition Services for: Adequate Nutrition, Nutritional Supplements, and Nu tritional Education. - Occupational Therapy Patient needs Occupational Therapy for a daily minimum of 1.5 hours at least 5 out of 7 days, to impr ove Activities of Daily Living, including: Eating, Grooming, Bathing, Dressing, Toileting, Toilet Tra nsfers, Community Reintegration, Higher functional activities, Adaptive Equipment, Splinting, Househo ld Tasks, and Other activities as determined. QI SCORES: - Self-Care A. Eating 09-Not applicable B. Oral hygiene 02-Substantial/maximal assistance C. Toileting hygiene 02-Substantial/maximal assistance E. Shower/bathe self 01-Dependent F. Upper body dressing 02-Substantial/maximal assistance G. Lower body dressing 01-Dependent H. Putting on/taking off footwear 88-Not attempted due to medical condition or safety concerns - Mobility A. Roll left and right 03-Partial/moderate assistance B. Sit to lying 03-Partial/moderate assistance C. Lying to sitting on side of bed 03-Partial/moderate assistance D. Sit to stand 03-Partial/moderate assistance E. Chair/kdx-[id number]-[id number] transfer 01-Dependent F. Toilet transfer 01-Dependent G. Car transfer 88-Not attempted due to medical condition or safety concerns I. Walk 10 feet 02-Substantial/maximal assistance J. Walk 50 feet with two turns 88-Not attempted due to medical condition or safety concerns K. Walk 150 feet 88-Not attempted due to medical condition or safety concerns L. Walking 10 feet on uneven surfaces 88-Not attempted due to medical condition or safety concerns M. 1 step (curb) 88-Not attempted due to medical condition or safety concerns N. 4 steps 88-Not attempted due to medical condition or safety concerns O. 12 steps 88-Not attempted due to medical condition or safety concerns P. Picking up object 88-Not attempted due to medical condition or safety concerns R. Wheel 50 feet with two turns 88-Not attempted due to medical condition or safety concerns S. Wheel 150 feet 88-Not attempted due to medical condition or safety concerns - Bladder and Bowel Bladder continence Bowel continence - Endurance Poor - Balance Poor - Safety Awareness Poor POTENTIAL FUNCTIONAL GOALS FOR PATIENT TO ACHIEVE BY DISCHARGE: - Safety Precaution Patient will remain free from falls or injury at time of discharge. - Bed Mobility Patient will perform bed mobility at 4-Richard level of assistance. - Transfers Patient will complete transfers from bed to chair at 4-Richard level of assistance. - Mobility Patient will ambulate 150 ft with 4-Richard level of assistance with RW. PATIENT REHAB POTENTIAL Mehreen SANTORO is able and expected to receive 3 hours of individualized therapy daily on at least 5 of e very 7 days Mehreen SANTORO's prognosis for significant practical improvement within a reasonable period of time appea rs Good Expected level of measurable improvement will be of a practical value to Mehreen SANTORO's functional [facility] or adaptations to impairments Has a viable Discharge Plan Medically appropriate; condition is sufficiently stable to participate in intensive rehab program DISCHARGE PLAN: - Estimated Length of Stay (days) 21. - Consensus on plan Discharge plan has been discussed with primary caregiver. Patient/Family is in agreement with the kori n. Primary caregiver is in agreement with the plan. - Patient/Family Goals Return home with assistance. - Planned Living Setting Upon Discharge Home, to live with Family/Relatives. Transitional Living. CONCLUSION ON REHABILITATION NECESSITY: I have evaluated patient's pre-admission functional status and, comparing it to the patient's post-ad mission functional status now, I conclude that the pre-admission assessment was accurate. Patient's c ondition on admission supports the medical necessity of admission to IR[facility]. It is safe to proceed with patient's therapy program. SIGNATURE PANEL: (METROLOGY TECHNICIAN)
--- NOTE | 2021-06-10 16:57 | R.PN ---
PROGRESS NOTES ENCOUNTER DATE AND TIME: 06/10/2021 16:49 (IRON SETTER) NAME SANJUANA SANTORO DATE OF : 1970 DATE OF ADMISSION: 06/08/2021 16:55 (IRON SETTER) STROKECHIEF COMPLAINT: Stroke, left arm paresis, dysarthria, dysphagia, trach collar is in place SUBJECTIVE: Pt denied any depression. Pt denied any Shortness of Breath. A trach speech valve will be requested. CBC with diff show mildly low Hgb of 11.3, glucose 109 to 129. UA shows 20-50 bacteria, COVID-19 nega tive. Chest x-ray shows no acute cardiopulmonary disease. Ambulated 1000' with standby assistance using a straight cane and 6L of O2 via trach collar. VITAL SIGNS Temperature: 97.8 F SBP/DBP: 133/69 Pulse: 66 Resp: 16 MEDICATION ALLERGIES: PENICILLIN ENVIRONMENTAL ALLERGIES: - Substance Allergies None Known - Other Allergies None Known NURSING: - Shower allowing shower - Bladder care per protocol - Skin care per protocol PRECAUTIONS: - Weight Bearing Precaution WBAT right LE ACTIVITIES OOB only with supervision THERAPIES: - Dietary and Nutrition Adequate Nutrition. Nutritional Education. Nutritional Supplements. Evaluate and Treat. - Occupational Therapy Cognitive Retraining. Visual Perceptual Training. Patient/Family Education. ADL Training. Safety Awar eness. Evaluate and Treat. Adaptive Equipment. - Speech Therapy Cognitive Training. Expressive Language Skills. Memory Strategies. Receptive Language Skills. Evaluat e and Treat. Speech Intelligibility Training. - Physical Therapy Mobility Training. Gait Training. Safety Awareness. Transfer Training. Balance Training. Evaluate and Treat. LE Strengthening. Patient/Family Education. PHYSICAL EXAM - Gen Alert and awake Lying in bed No apparent distress Oriented to: person, time, and place - Skin No breakdown No abnormalities - Eyes No abnormalities - ENMT Trach collar is in place - Neck Trach collar is in place - CVS RRR - Chest Upper airway congestion. - Resp Bilateral congestion. - Abd Soft - GI Non distended Deferred - No abnormalities - Ext Dense left arm paresis. - MSK Dense left arm paresis. - Neuro 0/5 strength left lower extremity. - Psych No abnormalities ASSESSMENT: Pt. is a 51 yo Right-handed male.On 05/11/2021 Pt. presented to [facility] with sudden onset of right-side weakness.On 05/11/2021 he was admitted to [facility] with diagnosis STROKE.His impa irment category is Stroke 01 - Right Body (Left Brain) (01.2).Pre-morbidly, Pt. was independent/mod- I in Locomotion, Safety Awareness, Social Cognition, Balance, and Transfers Control; and he had good Sphincter Control, Self-Care, Communication, and Endurance.Currently, he has deficits of Locomotion, Safety Awareness, Social Cognition, Balance, Transfers Control, Sphincter Control, Self-Care, Communi cation, and Endurance.Pt. is now referred to [facility] for acute in-patient r ehabilitation in order to maximize patient's functional independence in activities of daily living, s trength, ROM, and mobility.- Rehab Goal Patient has realistic goal of being discharged at assistance level CGA-to-Richard to reside at Home with Family/Relatives. MDM/PLAN: - Physical Therapy Gait dysfunction - to improve, our physical therapists will perform initial evaluation of pt's statu s upon admission and devise an individualized program for Gait Training, and Wheel Chair mobility Inability to transfer - to improve, our physical therapists will perform initial evaluation of pt's status upon admission and devise an individualized program for Bed mobility Need for home safety evaluation - to improve, our physical therapists will perform initial evaluatio n of pt's status upon admission and devise an individualized program for Home Evaluation Need in caregiver upon discharge - to improve, our physical therapists will perform initial evaluati on of pt's status upon admission and devise an individualized program for Caregiver Training New precaution - to improve, our physical therapists will perform initial evaluation of pt's status upon admission and devise an individualized program for Patient precaution education Poor balance - to improve, our physical therapists will perform initial evaluation of pt's status up on admission and devise an individualized program for Balance Training Poor endurance - to improve, our physical therapists will perform initial evaluation of pt's status upon admission and devise an individualized program for Endurance Training Weakness - to improve, our physical therapists will perform initial evaluation of pt's status upon a dmission and devise an individualized program for Aquatic Therapy, Neuromuscular Reeducation, and Str engthening Achieving independence - to improve, our physical therapists will perform initial evaluation of pt's status upon admission and devise an individualized program for Community Reintegration Activities - Occupational Therapy ADL deficits - to improve, our occupation therapists will perform initial evaluation of pt's status upon admission and devise an individualized program for Bathing, Bed mobility, Community Reintegratio n, Cooking, Dressing, Eating, Fine Motor Skills, Grooming, Homemaking, Kitchen Mobility, Laundry, Pat ient Education, Safety Awareness, Splinting - Positioning, Transfers(Toilet, Tub, Shower), and Wheel Chair Management Cognitive deficits - to improve, our occupation therapists will perform initial evaluation of pt's s tatus upon admission and devise an individualized program for Cognition - orientation Need for plant health care technician - to improve, our occupation therapists will perform initial evaluation of pt's status upon admission and devise an individualized program for Caregiver Training Weakness - to improve, our occupation therapists will perform initial evaluation of pt's status upon admission and devise an individualized program for Aquatic Therapy, Balance, Endurance, UE ROM, and UE strengthening - Other See attached MAR (Medication Administration Record) - Diet Type Continue Regular - Diet - Liquid Texture Continue Regular - Tube Feed Continue N/A - Bladder care per protocol - Weight Bearing Precaution WBAT left LE - Skin care per protocol - Diet - Solid Texture Continue Regular - Shower allowing shower for Dementia, TBI, Stroke, or others FUNCTIONAL STATUS: - Self-Care A. Eating modA B. Grooming sup C. Bathing Richard D. Dressing - Upper sup E. Dressing - Lower Richard F. Toileting sup - Sphincter Control G. Bladder control Kathie H. Bowel control Kathie - Transfers Control I. Bed/Chair/Wheelchair Kathie J. Toilet Kathie K. Tub/Shower Richard - Locomotion L. Walk/Wheelchair (B) sup M. Stairs modA - Communication N. Comprehension (B) sup O. Expression (B) sup - Social Cognition P. Social Interaction Ind Q. Problem Solving sup R. Memory Kathie - Endurance Good - Balance Good - Safety Awareness Good QI SCORES: - Self-Care A. Eating 09-Not applicable B. Oral hygiene 02-Substantial/maximal assistance C. Toileting hygiene 02-Substantial/maximal assistance E. Shower/bathe self 01-Dependent F. Upper body dressing 02-Substantial/maximal assistance G. Lower body dressing 01-Dependent H. Putting on/taking off footwear 88-Not attempted due to medical condition or safety concerns - Mobility A. Roll left and right 03-Partial/moderate assistance B. Sit to lying 03-Partial/moderate assistance C. Lying to sitting on side of bed 03-Partial/moderate assistance D. Sit to stand 03-Partial/moderate assistance E. Chair/[id number] transfer 01-Dependent F. Toilet transfer 01-Dependent G. Car transfer 88-Not attempted due to medical condition or safety concerns I. Walk 10 feet 02-Substantial/maximal assistance J. Walk 50 feet with two turns 88-Not attempted due to medical condition or safety concerns K. Walk 150 feet 88-Not attempted due to medical condition or safety concerns L. Walking 10 feet on uneven surfaces 88-Not attempted due to medical condition or safety concerns M. 1 step (curb) 88-Not attempted due to medical condition or safety concerns N. 4 steps 88-Not attempted due to medical condition or safety concerns O. 12 steps 88-Not attempted due to medical condition or safety concerns P. Picking up object 88-Not attempted due to medical condition or safety concerns R. Wheel 50 feet with two turns 88-Not attempted due to medical condition or safety concerns S. Wheel 150 feet 88-Not attempted due to medical condition or safety concerns - Bladder and Bowel Bladder continence Bowel continence - Endurance Poor - Balance Poor - Safety Awareness Poor CURRENT FUNC. DEFICITS: Mobility, Endurance, Balance, Safety Awareness, and Self-Care SIGNATURE PANEL: (IRON SETTER)
[2021-06-11] MEDS: ALBUTEROL 2.5 MG/3 ML NEB SOL NEB SCH ×6 (00:22→19:38)
[2021-06-11] MEDS: INSULIN -REGULAR HUMAN 50 UNIT/0.5 ML ML SQ SCH ×4 (07:30→21:00)
[2021-06-11] MEDS: ASPIRIN 81 MG CHEWABLE TABLET FT SCH (07:53)
[2021-06-11] MEDS: GABAPENTIN 300 MG CAP PO SCH ×2 (07:53→21:28)
[2021-06-11] MEDS: APIXABAN 2.5 MG TABLET PO SCH ×2 (07:53→21:27)
[2021-06-11] MEDS: LOSARTAN POTASSIUM 50 MG TABLET FT SCH ×2 (07:53→21:27)
[2021-06-11] MEDS: GLUCERNA 1.5 CAL 1,000 ML BOT FT SCH ×5 (07:54→21:25)
[2021-06-11] MEDS: SODIUM CHLORIDE 3% IH SCH ×3 (08:00→16:00)
--- NOTE | 2021-06-11 11:18 | RAD REPORT ---
EXAM DESCRIPTION: RAD - Barium Swallow Modified - 06/11/2021 11:03 am CLINICAL HISTORY: Check swallowing COMPARISON: No comparisons FINDINGS/IMPRESSION: Laryngeal penetration: cleared with thin and nectar Pharyngeal residue: Trace amount with thin, nectar, and honey in the Vallecular Absent hyolaryngel excursion and minimal epiglottic deflection. Total fluoro time: 2 minutes 29 seconds
[2021-06-11] MEDS: AMLODIPINE 5 MG TAB FT SCH (12:00)
--- NOTE | 2021-06-11 19:33 | R.PN ---
PROGRESS NOTES ENCOUNTER DATE AND TIME: 06/11/2021 19:28 (LATEX DIPPER) NAME SANJUANA SANTORO DATE OF : 1970 DATE OF ADMISSION: 06/08/2021 16:55 (LATEX DIPPER) STROKECHIEF COMPLAINT: Stroke, left arm paresis, dysarthria, dysphagia, trach collar is in place SUBJECTIVE: Pt denied any depression. Pt denied any Shortness of Breath. A trach speech valve will be requested. CBC with diff show mildly low Hgb of 11.3, glucose 109 to 129. UA shows 20-50 bacteria, COVID-19 nega tive. Chest x-ray shows no acute cardiopulmonary disease. Ambulated 1000' with standby assistance using a straight cane and O2 via trach collar. Patient is on soft mechanical diet with ground meats and honey thick liquids. Speech valve is on trach. VITAL SIGNS Temperature: 97.6 F SBP/DBP: 111/69 Pulse: 70 Resp: 16 MEDICATION ALLERGIES: PENICILLIN ENVIRONMENTAL ALLERGIES: - Substance Allergies None Known - Other Allergies None Known NURSING: - Shower allowing shower - Bladder care per protocol - Skin care per protocol PRECAUTIONS: - Weight Bearing Precaution WBAT right LE ACTIVITIES OOB only with supervision THERAPIES: - Dietary and Nutrition Adequate Nutrition. Nutritional Education. Nutritional Supplements. Evaluate and Treat. - Occupational Therapy Cognitive Retraining. Visual Perceptual Training. Patient/Family Education. ADL Training. Safety Awar eness. Evaluate and Treat. Adaptive Equipment. - Speech Therapy Cognitive Training. Expressive Language Skills. Memory Strategies. Receptive Language Skills. Evaluat e and Treat. Speech Intelligibility Training. - Physical Therapy Mobility Training. Gait Training. Safety Awareness. Transfer Training. Balance Training. Evaluate and Treat. LE Strengthening. Patient/Family Education. PHYSICAL EXAM - Gen Alert and awake Lying in bed No apparent distress Oriented to: person, time, and place - Skin No breakdown No abnormalities - Eyes No abnormalities - ENMT Trach collar is in place - Neck Trach collar is in place - CVS RRR - Chest Upper airway congestion. - Resp Bilateral congestion. - Abd Soft - GI Non distended Deferred - No abnormalities - Ext Dense left arm paresis. - MSK Dense left arm paresis. - Neuro 0/5 strength left lower extremity. - Psych No abnormalities ASSESSMENT: Pt. is a 51 yo Right-handed male.On 05/11/2021 Pt. presented to [facility] with sudden onset of right-side weakness.On 05/11/2021 he was admitted to [facility] with diagnosis STROKE.His impa irment category is Stroke 01 - Right Body (Left Brain) (01.2).Pre-morbidly, Pt. was independent/mod- I in Locomotion, Safety Awareness, Social Cognition, Balance, and Transfers Control; and he had good Sphincter Control, Self-Care, Communication, and Endurance.Currently, he has deficits of Locomotion, Safety Awareness, Social Cognition, Balance, Transfers Control, Sphincter Control, Self-Care, Communi cation, and Endurance.Pt. is now referred to [facility] for acute in-patient r ehabilitation in order to maximize patient's functional independence in activities of daily living, s trength, ROM, and mobility.- Rehab Goal Patient has realistic goal of being discharged at assistance level CGA-to-Richard to reside at Home with Family/Relatives. MDM/PLAN: - Physical Therapy Gait dysfunction - to improve, our physical therapists will perform initial evaluation of pt's statu s upon admission and devise an individualized program for Gait Training, and Wheel Chair mobility Inability to transfer - to improve, our physical therapists will perform initial evaluation of pt's status upon admission and devise an individualized program for Bed mobility Need for home safety evaluation - to improve, our physical therapists will perform initial evaluatio n of pt's status upon admission and devise an individualized program for Home Evaluation Need in caregiver upon discharge - to improve, our physical therapists will perform initial evaluati on of pt's status upon admission and devise an individualized program for Caregiver Training New precaution - to improve, our physical therapists will perform initial evaluation of pt's status upon admission and devise an individualized program for Patient precaution education Poor balance - to improve, our physical therapists will perform initial evaluation of pt's status up on admission and devise an individualized program for Balance Training Poor endurance - to improve, our physical therapists will perform initial evaluation of pt's status upon admission and devise an individualized program for Endurance Training Weakness - to improve, our physical therapists will perform initial evaluation of pt's status upon a dmission and devise an individualized program for Aquatic Therapy, Neuromuscular Reeducation, and Str engthening Achieving independence - to improve, our physical therapists will perform initial evaluation of pt's status upon admission and devise an individualized program for Community Reintegration Activities - Occupational Therapy ADL deficits - to improve, our occupation therapists will perform initial evaluation of pt's status upon admission and devise an individualized program for Bathing, Bed mobility, Community Reintegratio n, Cooking, Dressing, Eating, Fine Motor Skills, Grooming, Homemaking, Kitchen Mobility, Laundry, Pat ient Education, Safety Awareness, Splinting - Positioning, Transfers(Toilet, Tub, Shower), and Wheel Chair Management Cognitive deficits - to improve, our occupation therapists will perform initial evaluation of pt's s tatus upon admission and devise an individualized program for Cognition - orientation Need for women's health care nurse practitioner - to improve, our occupation therapists will perform initial evaluation of pt's status upon admission and devise an individualized program for Caregiver Training Weakness - to improve, our occupation therapists will perform initial evaluation of pt's status upon admission and devise an individualized program for Aquatic Therapy, Balance, Endurance, UE ROM, and UE strengthening - Other See attached MAR (Medication Administration Record) - Diet Type Continue Regular - Diet - Liquid Texture Continue Regular - Tube Feed Continue N/A - Bladder care per protocol - Weight Bearing Precaution WBAT left LE - Skin care per protocol - Diet - Solid Texture Continue Regular - Shower allowing shower for Dementia, TBI, Stroke, or others FUNCTIONAL STATUS: UPDATED AT WEEKLY TEAM CONFERENCE - Bladder Same accident frequency: 7-Ind - No accidents in the past 7 days - Bowel Same accident frequency: 7-Ind - No accidents in the past 7 days - Walking Same score based on distance walked: 0(N/A) Same score based on distance walked: 1(<=50ft) - Wheelchair Same score based on distance traveled: 0(N/A) FUNCTIONAL STATUS: - Self-Care A. Eating modA B. Grooming sup C. Bathing Richard D. Dressing - Upper sup E. Dressing - Lower Richard F. Toileting sup - Sphincter Control G. Bladder control Kathie H. Bowel control Kathie - Transfers Control I. Bed/Chair/Wheelchair Kathie J. Toilet Kathie K. Tub/Shower Richard - Locomotion L. Walk/Wheelchair (B) sup M. Stairs modA - Communication N. Comprehension (B) sup O. Expression (B) sup - Social Cognition P. Social Interaction Ind Q. Problem Solving sup R. Memory Kathie - Endurance Good - Balance Good - Safety Awareness Good QI SCORES: - Self-Care A. Eating 09-Not applicable B. Oral hygiene 02-Substantial/maximal assistance C. Toileting hygiene 02-Substantial/maximal assistance E. Shower/bathe self 01-Dependent F. Upper body dressing 02-Substantial/maximal assistance G. Lower body dressing 01-Dependent H. Putting on/taking off footwear 88-Not attempted due to medical condition or safety concerns - Mobility A. Roll left and right 03-Partial/moderate assistance B. Sit to lying 03-Partial/moderate assistance C. Lying to sitting on side of bed 03-Partial/moderate assistance D. Sit to stand 03-Partial/moderate assistance E. Chair/hjr-hp-cvoef transfer 01-Dependent F. Toilet transfer 01-Dependent G. Car transfer 88-Not attempted due to medical condition or safety concerns I. Walk 10 feet 02-Substantial/maximal assistance J. Walk 50 feet with two turns 88-Not attempted due to medical condition or safety concerns K. Walk 150 feet 88-Not attempted due to medical condition or safety concerns L. Walking 10 feet on uneven surfaces 88-Not attempted due to medical condition or safety concerns M. 1 step (curb) 88-Not attempted due to medical condition or safety concerns N. 4 steps 88-Not attempted due to medical condition or safety concerns O. 12 steps 88-Not attempted due to medical condition or safety concerns P. Picking up object 88-Not attempted due to medical condition or safety concerns R. Wheel 50 feet with two turns 88-Not attempted due to medical condition or safety concerns S. Wheel 150 feet 88-Not attempted due to medical condition or safety concerns - Bladder and Bowel Bladder continence Bowel continence - Endurance Poor - Balance Poor - Safety Awareness Poor CURRENT FUNC. DEFICITS: Mobility, Endurance, Balance, Safety Awareness, and Self-Care SIGNATURE PANEL: (LATEX DIPPER)
[2021-06-12] MEDS: ALBUTEROL 2.5 MG/3 ML NEB SOL NEB SCH ×4 (01:12→12:00)
[2021-06-12] MEDS: INSULIN -REGULAR HUMAN 50 UNIT/0.5 ML ML SQ SCH ×4 (07:25→19:45)
[2021-06-12] MEDS: SODIUM CHLORIDE 3% IH SCH ×2 (08:00)
[2021-06-12] MEDS: LOSARTAN POTASSIUM 50 MG TABLET FT SCH ×2 (08:30→19:41)
[2021-06-12] MEDS: ASPIRIN 81 MG CHEWABLE TABLET FT SCH (08:30)
[2021-06-12] MEDS: GABAPENTIN 300 MG CAP PO SCH ×2 (08:30→19:41)
[2021-06-12] MEDS: APIXABAN 2.5 MG TABLET PO SCH ×2 (08:30→19:41)
[2021-06-12] MEDS: GLUCERNA 1.5 CAL 1,000 ML BOT FT SCH ×4 (08:32→19:43)
[2021-06-12] MEDS: AMLODIPINE 5 MG TAB FT SCH (12:00)
--- NOTE | 2021-06-12 13:38 | P.PN ---
Date of Service: 06/12/21 ENT Consultation Please see dictated H&P Impression: 1. 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 Status post tracheostomy tube removal today. 2. Neurogenic dysphagia-- improved. Plan: 1. Tracheal stomal wound care instructions given to nurse. Keep stoma covered with xeroform and compressive dressing. 2. Will look at wound in one week inpatient or outpatient (card given). 3. Continue swallowing therapy and current diet recommendations. 4. Will followup outpatient to assess vocal folds and swallowing. Thank you, Dr. Clements, for this most interesting patient.
[2021-06-12] MEDS ORDERED: ALBUTEROL 2.5 MG/3 ML NEB SOL NEB PRN ×2 (14:05→17:00)
--- NOTE | 2021-06-12 15:27 | R.PN ---
PROGRESS NOTES ENCOUNTER DATE AND TIME: 06/12/2021 15:23 (AUTO RESEARCH ENGINEER) NAME SANJUANA SANTORO DATE OF : 1970 DATE OF ADMISSION: 06/08/2021 16:55 (AUTO RESEARCH ENGINEER) STROKECHIEF COMPLAINT: Stroke, left arm paresis, dysarthria, dysphagia, trach collar is in place SUBJECTIVE: Pt denied any depression. Pt denied any Shortness of Breath. A trach speech valve will be requested. CBC with diff show mildly low Hgb of 11.3, glucose 118 to 127. UA shows 20-50 bacteria, COVID-19 nega tive. Chest x-ray shows no acute cardiopulmonary disease. Ambulated 1500' with standby assistance using a straight cane and O2 via trach collar. After MBS, patient is on soft mechanical diet with ground meats and honey thick liquids. Speech valve is on trach. VITAL SIGNS Temperature: 98.2 F SBP/DBP: 135/71 Pulse: 68 Resp: 16 MEDICATION ALLERGIES: PENICILLIN ENVIRONMENTAL ALLERGIES: - Substance Allergies None Known - Other Allergies None Known NURSING: - Shower allowing shower - Bladder care per protocol - Skin care per protocol PRECAUTIONS: - Weight Bearing Precaution WBAT right LE ACTIVITIES OOB only with supervision THERAPIES: - Dietary and Nutrition Adequate Nutrition. Nutritional Education. Nutritional Supplements. Evaluate and Treat. - Occupational Therapy Cognitive Retraining. Visual Perceptual Training. Patient/Family Education. ADL Training. Safety Awar eness. Evaluate and Treat. Adaptive Equipment. - Speech Therapy Cognitive Training. Expressive Language Skills. Memory Strategies. Receptive Language Skills. Evaluat e and Treat. Speech Intelligibility Training. - Physical Therapy Mobility Training. Gait Training. Safety Awareness. Transfer Training. Balance Training. Evaluate and Treat. LE Strengthening. Patient/Family Education. PHYSICAL EXAM - Gen Alert and awake Lying in bed No apparent distress Oriented to: person, time, and place - Skin No breakdown No abnormalities - Eyes No abnormalities - ENMT Trach collar is in place - Neck Trach collar is in place - CVS RRR - Chest Upper airway congestion. - Resp Bilateral congestion. - Abd Soft - GI Non distended Deferred - No abnormalities - Ext Dense left arm paresis. - MSK Dense left arm paresis. - Neuro 0/5 strength left lower extremity. - Psych No abnormalities ASSESSMENT: Pt. is a 51 yo Right-handed male.On 05/11/2021 Pt. presented to [facility] with sudden onset of right-side weakness.On 05/11/2021 he was admitted to [facility] with diagnosis STROKE.His impa irment category is Stroke 01 - Right Body (Left Brain) (01.2).Pre-morbidly, Pt. was independent/mod- I in Locomotion, Safety Awareness, Social Cognition, Balance, and Transfers Control; and he had good Sphincter Control, Self-Care, Communication, and Endurance.Currently, he has deficits of Locomotion, Safety Awareness, Social Cognition, Balance, Transfers Control, Sphincter Control, Self-Care, Communi cation, and Endurance.Pt. is now referred to [facility] for acute in-patient r ehabilitation in order to maximize patient's functional independence in activities of daily living, s trength, ROM, and mobility.- Rehab Goal Patient has realistic goal of being discharged at assistance level CGA-to-Richard to reside at Home with Family/Relatives. MDM/PLAN: - Physical Therapy Gait dysfunction - to improve, our physical therapists will perform initial evaluation of pt's statu s upon admission and devise an individualized program for Gait Training, and Wheel Chair mobility Inability to transfer - to improve, our physical therapists will perform initial evaluation of pt's status upon admission and devise an individualized program for Bed mobility Need for home safety evaluation - to improve, our physical therapists will perform initial evaluatio n of pt's status upon admission and devise an individualized program for Home Evaluation Need in caregiver upon discharge - to improve, our physical therapists will perform initial evaluati on of pt's status upon admission and devise an individualized program for Caregiver Training New precaution - to improve, our physical therapists will perform initial evaluation of pt's status upon admission and devise an individualized program for Patient precaution education Poor balance - to improve, our physical therapists will perform initial evaluation of pt's status up on admission and devise an individualized program for Balance Training Poor endurance - to improve, our physical therapists will perform initial evaluation of pt's status upon admission and devise an individualized program for Endurance Training Weakness - to improve, our physical therapists will perform initial evaluation of pt's status upon a dmission and devise an individualized program for Aquatic Therapy, Neuromuscular Reeducation, and Str engthening Achieving independence - to improve, our physical therapists will perform initial evaluation of pt's status upon admission and devise an individualized program for Community Reintegration Activities - Occupational Therapy ADL deficits - to improve, our occupation therapists will perform initial evaluation of pt's status upon admission and devise an individualized program for Bathing, Bed mobility, Community Reintegratio n, Cooking, Dressing, Eating, Fine Motor Skills, Grooming, Homemaking, Kitchen Mobility, Laundry, Pat ient Education, Safety Awareness, Splinting - Positioning, Transfers(Toilet, Tub, Shower), and Wheel Chair Management Cognitive deficits - to improve, our occupation therapists will perform initial evaluation of pt's s tatus upon admission and devise an individualized program for Cognition - orientation Need for care process manager - to improve, our occupation therapists will perform initial evaluation of pt's status upon admission and devise an individualized program for Caregiver Training Weakness - to improve, our occupation therapists will perform initial evaluation of pt's status upon admission and devise an individualized program for Aquatic Therapy, Balance, Endurance, UE ROM, and UE strengthening - Other See attached MAR (Medication Administration Record) - Diet Type Continue Regular - Diet - Liquid Texture Continue Regular - Tube Feed Continue N/A - Bladder care per protocol - Weight Bearing Precaution WBAT left LE - Skin care per protocol - Diet - Solid Texture Continue Regular - Shower allowing shower for Dementia, TBI, Stroke, or others FUNCTIONAL STATUS: UPDATED AT WEEKLY TEAM CONFERENCE - Bladder Same accident frequency: 7-Ind - No accidents in the past 7 days - Bowel Same accident frequency: 7-Ind - No accidents in the past 7 days - Walking Same score based on distance walked: 0(N/A) Same score based on distance walked: 1(<=50ft) - Wheelchair Same score based on distance traveled: 0(N/A) FUNCTIONAL STATUS: - Self-Care A. Eating modA B. Grooming sup C. Bathing Richard D. Dressing - Upper sup E. Dressing - Lower Richard F. Toileting sup - Sphincter Control G. Bladder control Kathie H. Bowel control Kathie - Transfers Control I. Bed/Chair/Wheelchair Kathie J. Toilet Kathie K. Tub/Shower Richard - Locomotion L. Walk/Wheelchair (B) sup M. Stairs modA - Communication N. Comprehension (B) sup O. Expression (B) sup - Social Cognition P. Social Interaction Ind Q. Problem Solving sup R. Memory Kathie - Endurance Good - Balance Good - Safety Awareness Good QI SCORES: - Self-Care A. Eating 09-Not applicable B. Oral hygiene 02-Substantial/maximal assistance C. Toileting hygiene 02-Substantial/maximal assistance E. Shower/bathe self 01-Dependent F. Upper body dressing 02-Substantial/maximal assistance G. Lower body dressing 01-Dependent H. Putting on/taking off footwear 88-Not attempted due to medical condition or safety concerns - Mobility A. Roll left and right 03-Partial/moderate assistance B. Sit to lying 03-Partial/moderate assistance C. Lying to sitting on side of bed 03-Partial/moderate assistance D. Sit to stand 03-Partial/moderate assistance E. Chair/[id number] transfer 01-Dependent F. Toilet transfer 01-Dependent G. Car transfer 88-Not attempted due to medical condition or safety concerns I. Walk 10 feet 02-Substantial/maximal assistance J. Walk 50 feet with two turns 88-Not attempted due to medical condition or safety concerns K. Walk 150 feet 88-Not attempted due to medical condition or safety concerns L. Walking 10 feet on uneven surfaces 88-Not attempted due to medical condition or safety concerns M. 1 step (curb) 88-Not attempted due to medical condition or safety concerns N. 4 steps 88-Not attempted due to medical condition or safety concerns O. 12 steps 88-Not attempted due to medical condition or safety concerns P. Picking up object 88-Not attempted due to medical condition or safety concerns R. Wheel 50 feet with two turns 88-Not attempted due to medical condition or safety concerns S. Wheel 150 feet 88-Not attempted due to medical condition or safety concerns - Bladder and Bowel Bladder continence Bowel continence - Endurance Poor - Balance Poor - Safety Awareness Poor CURRENT FUNC. DEFICITS: Mobility, Endurance, Balance, Safety Awareness, and Self-Care SIGNATURE PANEL: (AUTO RESEARCH ENGINEER)
[2021-06-12] MEDS ORDERED: HOME MED 1 EA UNK IH PRN (16:47)
[2021-06-13 05:02] LABS: Absolute Lymphocytes (CBC) 2.3 K/uL (0.7-4.9); Hematocrit 33.5 % (39.6-49.0); Lymphocytes % 22.6 % (15.3-44.8); MPV 7.1 fL (7.6-11.3); RBC Red Blood Cell Count 3.96 M/uL (4.33-5.43)
[2021-06-13 05:14] LABS: Albumin 2.9 g/dL (3.4-5.0); BUN Blood Urea Nitrogen 11 mg/dL (7-18); Bicarbonate 27 mmol/L (21-32); Glucose Level 121 mg/dL (74-106); Magnesium 1.9 mg/dL (1.8-2.4); Prealbumin 17.9 mg/dL (20-40); Sodium Level 136 mmol/L (136-145)
[2021-06-13] MEDS: INSULIN -REGULAR HUMAN 50 UNIT/0.5 ML ML SQ SCH ×4 (07:27→20:15)
[2021-06-13] MEDS: ASPIRIN 81 MG CHEWABLE TABLET FT SCH (08:28)
[2021-06-13] MEDS: LOSARTAN POTASSIUM 50 MG TABLET FT SCH ×2 (08:28→20:15)
[2021-06-13] MEDS: APIXABAN 2.5 MG TABLET PO SCH ×2 (08:28→20:15)
[2021-06-13] MEDS: GABAPENTIN 300 MG CAP PO SCH ×2 (08:30→20:15)
[2021-06-13] MEDS: GLUCERNA 1.5 CAL 1,000 ML BOT FT SCH ×3 (09:00→17:00)
[2021-06-13] MEDS: AMLODIPINE 5 MG TAB FT SCH (14:48)
[2021-06-13] MEDS ORDERED: GLUCERNA 1.5 CAL 1,000 ML BOT FT PRN (17:12)
[2021-06-13] MEDS: AMITRIPTYLINE 10 MG TAB PO SCH (20:15)
[2021-06-14] MEDS: INSULIN -REGULAR HUMAN 50 UNIT/0.5 ML ML SQ SCH ×4 (07:30→21:00)
[2021-06-14] MEDS: GABAPENTIN 300 MG CAP PO SCH ×2 (08:08→21:02)
[2021-06-14] MEDS: ASPIRIN 81 MG CHEWABLE TABLET FT SCH (08:08)
[2021-06-14] MEDS: LOSARTAN POTASSIUM 50 MG TABLET FT SCH ×2 (08:08→21:02)
[2021-06-14] MEDS: APIXABAN 2.5 MG TABLET PO SCH ×2 (08:08→21:02)
--- NOTE | 2021-06-14 09:56 | P.RH.PN ---
Estimated Length of Stay: 18 Expected Discharge Date: 06/25/21 Discharge Disposition Plan: Home Family Support: Yes Fpc Goal: Mobility, Transfers, Self Care Vital Signs: Last Vital Signs Temp 96.8 F 06/14/21 08:00 Pulse 70 06/14/21 08:00 Resp 16 06/14/21 08:00 BP 140/85 06/14/21 08:00 Pulse Ox 96 06/14/21 08:00 Laboratory: Laboratory Last Values WBC 10.10 K/uL (4.3-10.9) 06/13/21 04:35 RBC 3.96 M/uL (4.33-5.43) L 06/13/21 04:35 Hgb 11.6 g/dL (13.6-17.9) L 06/13/21 04:35 Hct 33.5 % (39.6-49.0) L 06/13/21 04:35 MCV 84.6 fL (80-100) 06/13/21 04:35 MCH 29.3 pg (27.0-35.0) 06/13/21 04:35 MCHC 34.6 g/dL (32.0-36.0) 06/13/21 04:35 RDW 12.5 % (12.1-15.2) 06/13/21 04:35 Plt Count 389 K/uL (152-406) 06/13/21 04:35 MPV 7.1 fL (7.6-11.3) L 06/13/21 04:35 Neutrophils % 57.7 % (41.7-73.7) 06/13/21 04:35 Lymphocytes % 22.6 % (15.3-44.8) 06/13/21 04:35 Monocytes % 9.1 % (3.3-12.3) 06/13/21 04:35 Eosinophils % 10.1 % (0-4.4) H 06/13/21 04:35 Basophils % 0.5 % (0-1.3) 06/13/21 04:35 Absolute Neutrophils 5.8 K/uL (1.8-8.0) 06/13/21 04:35 Segmented Neutrophils 52 % (40-80) 06/08/21 08:05 Band Neutrophils 3 % (0-1) H 06/08/21 08:05 Absolute Lymphocytes 2.3 K/uL (0.7-4.9) 06/13/21 04:35 Lymphocytes 17 % (15-42) 06/08/21 08:05 Monocytes 11 % (0-10) H 06/08/21 08:05 Absolute Monocytes 0.9 K/uL (0.1-1.3) 06/13/21 04:35 Eosinophils 9 % (0-3) H 06/08/21 08:05 Absolute Eosinophils 1.0 K/uL (0-0.5) H 06/13/21 04:35 Absolute Basophils 0.1 K/uL (0-0.5) 06/13/21 04:35 Metamyelocytes 3 % (0-0) H 06/08/21 08:05 Myelocytes 3 % (0-0) H 06/08/21 08:05 Reactive Lymphocytes 2 % 06/08/21 08:05 Platelet Estimate Adeq 06/08/21 08:05 Morphology Comment Not seen (NOT SEEN) 06/08/21 08:05 Sodium 136 mmol/L (136-145) 06/13/21 04:35 Potassium 4.0 mmol/L (3.5-5.1) 06/13/21 04:35 Chloride 105 mmol/L (98-107) 06/13/21 04:35 Carbon Dioxide 27 mmol/L (21-32) 06/13/21 04:35 BUN 11 mg/dL (7-18) 06/13/21 04:35 Creatinine 0.63 mg/dL (0.55-1.3) 06/13/21 04:35 Estimated GFR > 90 mL/min (=/>90) 06/13/21 04:35 Glucose 121 mg/dL (74-106) H 06/13/21 04:35 POC Glucose 130 mg/dL (65-120) H 06/14/21 07:50 Calcium 9.4 mg/dL (8.5-10.1) 06/13/21 04:35 Magnesium 1.9 mg/dL (1.8-2.4) 06/13/21 04:35 Albumin 2.9 g/dL (3.4-5.0) L 06/13/21 04:35 Prealbumin 17.9 mg/dL (20-40) L 06/13/21 04:35 Urine Color Yellow (Yellow) 02/26/22 03:45 Urine Appearance Clear (Clear) 06/08/21 03:45 Urine pH 8.0 (5.0-7.0) H 06/08/21 03:45 Ur Specific [place] 1.010 (1.005-1.030) 06/08/21 03:45 Glucose (UA)(Auto) Negative (Negative) 06/08/21 03:45 Urine Ketones Negative (Negative) 06/08/21 03:45 Urine Blood Negative (Negative) 06/08/21 03:45 Urine Nitrite Negative (Negative) 06/08/21 03:45 Urine Bilirubin Negative (Negative) 06/08/21 03:45 Urine Urobilinogen 1.0 mg/dL (0.2-1.0) 06/08/21 03:45 Ur Leukocyte Esterase Negative (Negative) 06/08/21 03:45 Urine RBC <5 /HPF (NONE SEEN) 06/08/21 03:45 Urine WBC <5 /HPF (<5) 06/08/21 03:45 Ur Squamous Epith Cells <5 /HPF (NONE SEEN) 06/08/21 03:45 Urine Bacteria 20-50 /HPF (NONE SEEN) H 06/08/21 03:45 Urine Culture Reflexed Not needed 06/08/21 03:45 Urine Total Protein Negative (Negative) 06/08/21 03:45 SARS-CoV-2 Rap RNA(RT-PCR) Negative (NEGATIVE) 06/08/21 00:01 Weight: 204 lb 12.8 oz Wound Present: No Closed Surgical Incision Present: No Negative Pressure Wound Therapy Present: No Physician Update: He is making fair overall progress. He has dense left arm paresis with max strength 2/5. His trach has been pulled. Walking 1000' with contact guard assistance. Up and down 15 steps with standby assistance. Comment: Peg tube clean and dry; dressing dry and intact Functional Improvement: Patient is ambulating 1000+ feet. with SPC, demonstrating overall balance & technique. however, can occasionally present with easily distracted. Patient presents with good work ethic and attitude toward PT services. Summary: Patient's care plan and senior living goals have been reviewed and revised as necessary. Please see the Rehabilitation Signature page for all necessary signatures.
--- NOTE | 2021-06-14 11:06 | CON ---
Date of Consultation: 06/12/2021 Reason For Consultation: Dysphagia. History Of Present Illness: The patient is a pleasant 51-year-old male. [facility] with symptoms of CVA and upon examination, patient had vocal cord paralysis and severe dysphagia, most likely from the stroke. Thus, a tracheostomy tube was placed and the patient was sen t to our facility for rehabilitation. I was consulted and that the patient is getting close to disch arge and he is able to use a speaking valve and swallowing has improved. Thus, the plan was to decan nulate his trach. Upon arrival to bedside, the patient states that he does have some moderate discom fort with the tracheostomy tube, but states that swallowing has improved whereby he is able to swallo w liquids and soft foods without much difficulty. He denies coughing, gasping, choking, or regurgita tion of food or liquid. The patient's voice also was much improved and is using the speaking valve d uring my history and physical exam. He has no other complaints today. Past Medical History: Recent CVA. Social History: Denies alcohol, tobacco, illicit drugs. Allergies: NO KNOWN DRUG ALLERGIES. Medications: Please refer the MAR. DICTATION ENDS HERE KD/MODL Voice ID: [id number] Report ID: [id number]
[2021-06-14] MEDS: AMLODIPINE 5 MG TAB FT SCH (12:08)
[2021-06-14] MEDS ORDERED: GLUCERNA 1.5 CAL 1,000 ML BOT FT PRN (14:28)
--- NOTE | 2021-06-14 15:48 | CON ---
Date of Consultation: 06/12/2021 Chief Complaint: Neck pain. History Of Present Illness: The patient is a pleasant 51-year-old male who was admitted to our facility on 06/07/2021 for acute inpatient rehabilitation. The patient suffered right-sided CVA as well as acute hypoxic respiratory failure, which resulted in a tracheostomy tube placement at [facility] on 05/11/2021. He was transferred here after he was stable for the hope of a realistic goal of being discharged at assistance level to reside at home with family and relatives. The patient has done relatively well and he has a non- cuffed #6 tracheostomy tube with a speaking valve in place and has been doing well with the tracheostomy tube and oxygen saturations have been in the 90s. Upon arrival to bedside, the patient stated that he does have neck discomfort secondary to the tracheostomy tube and mild hoarseness, but otherwise he is ready to be decannulated. He denies cough, postnasal drip, rhinorrhea, odynophagia, and states that dysphagia is mild. Speech and Swallow have been working carefully with him and he is able to tolerate soft diet without any significant regurgitation, gasping, choking, and aspiration. There has been flash penetration at the laryngeal level based on the most previous swallow study, but otherwise he has been able to handle his oral intake without concern for aspiration. No other ears, nose, or throat complaints today. Past Medical History: Acute hypoxemic respiratory failure, unspecified bacterial pneumonia, pneumonia due to Streptococcus pneumoniae, tracheostomy status, ventilator associated pneumonia, type 2 diabetes mellitus with unspecified complications, dysarthria following nontraumatic intracerebral hemorrhage, mild dysphagia, hemiplegia and hemiparesis following cerebral infarction affecting left nondominant side, essential hypertension, nontraumatic intracerebral hemorrhages, unspecified, other sharp and nontraumatic intracerebral hemorrhage and hemisphere subcortical, restlessness and agitation, other obesity due to excess calories. Allergies: PENICILLIN. Medications: Extensive, please refer to the MAR that is attached on the [employer] record. Review of Systems: General: He is awake, alert, oriented, and sitting in bed, in no apparent distress. Vital Signs: Temperature 98.9, blood pressure 132/68, pulse 68, respiratory rate 17. Vital signs are stable. He is afebrile. Ears: Denies otalgia or otorrhea. Nose: Denies rhinorrhea or nasal obstruction. Oral Cavity: Denies sore throat, exudate. Neck: Mild neck pain secondary to tracheostomy tube, but otherwise denies swelling, mass, or obstruction. Physical Examination: General: The patient is awake, alert, and oriented to person, place, and time and he is in no acute distress. Ears: Exam deferred. Nose: Midline septum and moist intranasal mucosa. No evidence of mucoid rhinorrhea and excellent nasal patency. Oral Cavity: Midline uvula. Posterior oropharynx intact. Moist oral mucosa. No obstruction. Neck: #6 non-cuffed tracheostomy tube intact with speaking valve intact. No evidence of purulence noted around the tracheostomy stoma. Procedure: After obtaining verbal consent, the patient was placed into the sitting position and the tracheostomy tube was removed. The patient tolerated well. Xeroform and compressive dressing were placed. Diagnoses: 1. Acute hypoxemic respiratory failure -- stable/resolved. 2. Mild dysphagia -- improved with Speech and Swallow. 3. Dysphonia -- mild. Recommendations: 1. The patient tolerated tracheostomy tube removal. I also helped the patient to take a liquid swallow and he passed without any aspiration, thus I felt confident to remove the tube. He will be discharged at Dr. Clements's recommendations and then he will follow up in my clinic in 1 to 2 weeks post discharge for wound check. 2. Continue to work with Speech and Swallow for swallowing therapy and may advance the diet as tolerated. 3. The patient will need a flexible nasopharyngolaryngoscopy in the outpatient setting to assess the vocal cords. This was discussed in detail with the patient. Business card was given. Thank you, Dr. Clements, for this most interesting consult. LEONARD/SONY Voice ID: [id number] Report ID: [id number] CARMEN
[2021-06-14] MEDS: AMITRIPTYLINE 10 MG TAB PO SCH (21:02)
[2021-06-14] MEDS: guaiFENesin 100 MG/5 ML UCUP PO PRN (23:45)
[2021-06-14] MEDS: MELATONIN 3 MG TABLET PO PRN (23:45)
[2021-06-15 05:28] VITALS: BMI 32.3
[2021-06-15] MEDS: INSULIN -REGULAR HUMAN 50 UNIT/0.5 ML ML SQ SCH ×4 (07:30→20:22)
[2021-06-15] MEDS: APIXABAN 2.5 MG TABLET PO SCH ×2 (07:59→20:21)
[2021-06-15] MEDS: ASPIRIN 81 MG CHEWABLE TABLET FT SCH (07:59)
[2021-06-15] MEDS: GABAPENTIN 300 MG CAP PO SCH ×2 (07:59→20:22)
[2021-06-15] MEDS: LOSARTAN POTASSIUM 50 MG TABLET FT SCH ×2 (07:59→20:22)
[2021-06-15] MEDS: AMLODIPINE 5 MG TAB FT SCH (12:13)
[2021-06-15] MEDS: AMITRIPTYLINE 25 MG TAB PO SCH (20:22)
[2021-06-16] MEDS: INSULIN -REGULAR HUMAN 50 UNIT/0.5 ML ML SQ SCH ×4 (07:30→19:55)
[2021-06-16] MEDS: APIXABAN 2.5 MG TABLET PO SCH ×2 (08:01→19:55)
[2021-06-16] MEDS: ASPIRIN 81 MG CHEWABLE TABLET FT SCH (08:01)
[2021-06-16] MEDS: LOSARTAN POTASSIUM 50 MG TABLET FT SCH ×2 (08:01→19:54)
[2021-06-16] MEDS: GABAPENTIN 300 MG CAP PO SCH ×2 (08:01→19:55)
[2021-06-16] MEDS: AMLODIPINE 5 MG TAB FT SCH (12:14)
[2021-06-16] MEDS: AMITRIPTYLINE 25 MG TAB PO SCH (19:54)
[2021-06-17] MEDS: INSULIN -REGULAR HUMAN 50 UNIT/0.5 ML ML SQ SCH ×4 (07:30→20:15)
[2021-06-17] MEDS: GABAPENTIN 300 MG CAP PO SCH ×2 (08:27→19:54)
[2021-06-17] MEDS: ASPIRIN 81 MG CHEWABLE TABLET FT SCH (08:27)
[2021-06-17] MEDS: LOSARTAN POTASSIUM 50 MG TABLET FT SCH ×2 (08:28→19:54)
[2021-06-17] MEDS: APIXABAN 2.5 MG TABLET PO SCH ×2 (08:28→19:54)
[2021-06-17] MEDS: AMLODIPINE 5 MG TAB FT SCH (13:15)
--- NOTE | 2021-06-17 18:40 | R.PN ---
PROGRESS NOTES ENCOUNTER DATE AND TIME: 06/17/2021 18:32 (TEST ENGINE OPERATOR) NAME SANJUANA SANTORO DATE OF : 1970 DATE OF ADMISSION: 06/08/2021 16:55 (TEST ENGINE OPERATOR) STROKECHIEF COMPLAINT: Stroke, left arm paresis, dysarthria, dysphagia, trach collar is in place SUBJECTIVE: Pt denied any depression. Pt denied any Shortness of Breath. CBC with diff show mildly low Hgb of 11.3, glucose 118 to 127. UA shows 20-50 bacteria, COVID-19 nega tive. Chest x-ray shows no acute cardiopulmonary disease. Ambulated 1000' with modified independence using a straight cane and 2L O2. Up and down 20 steps wit h standby assistance. Trach was removed last week. He is doing well with much less secretion on Elavil 50 mg at night. Now consuming dry solid with nectar thick liquids. She has no overt aspiration with 13 of 15 trials o f swallowing. VITAL SIGNS Temperature: 97.6 F SBP/DBP: 135/94 Pulse: 73 Resp: 15 MEDICATION ALLERGIES: PENICILLIN ENVIRONMENTAL ALLERGIES: - Substance Allergies None Known - Other Allergies None Known NURSING: - Shower allowing shower - Bladder care per protocol - Skin care per protocol PRECAUTIONS: - Weight Bearing Precaution WBAT right LE ACTIVITIES OOB only with supervision THERAPIES: - Dietary and Nutrition Adequate Nutrition. Nutritional Education. Nutritional Supplements. Evaluate and Treat. - Occupational Therapy Cognitive Retraining. Visual Perceptual Training. Patient/Family Education. ADL Training. Safety Awar eness. Evaluate and Treat. Adaptive Equipment. - Speech Therapy Cognitive Training. Expressive Language Skills. Memory Strategies. Receptive Language Skills. Evaluat e and Treat. Speech Intelligibility Training. - Physical Therapy Mobility Training. Gait Training. Safety Awareness. Transfer Training. Balance Training. Evaluate and Treat. LE Strengthening. Patient/Family Education. PHYSICAL EXAM - Gen Alert and awake Lying in bed No apparent distress Oriented to: person, time, and place - Skin No breakdown No abnormalities - Eyes No abnormalities - ENMT Trach collar is in place - Neck Trach collar is in place - CVS RRR - Chest Upper airway congestion. - Resp Bilateral congestion. - Abd Soft - GI Non distended Deferred - No abnormalities - Ext Dense left arm paresis. - MSK Dense left arm paresis. - Neuro 0/5 strength left lower extremity. - Psych No abnormalities ASSESSMENT: Pt. is a 51 yo Right-handed male.On 05/11/2021 Pt. presented to [facility] with sudden onset of right-side weakness.On 05/11/2021 he was admitted to [facility] with diagnosis STROKE.His impa irment category is Stroke 01 - Right Body (Left Brain) (01.2).Pre-morbidly, Pt. was independent/mod- I in Locomotion, Safety Awareness, Social Cognition, Balance, and Transfers Control; and he had good Sphincter Control, Self-Care, Communication, and Endurance.Currently, he has deficits of Locomotion, Safety Awareness, Social Cognition, Balance, Transfers Control, Sphincter Control, Self-Care, Communi cation, and Endurance.Pt. is now referred to [facility] for acute in-patient r ehabilitation in order to maximize patient's functional independence in activities of daily living, s trength, ROM, and mobility.- Rehab Goal Patient has realistic goal of being discharged at assistance level CGA-to-Richard to reside at Home with Family/Relatives. MDM/PLAN: - Physical Therapy Gait dysfunction - to improve, our physical therapists will perform initial evaluation of pt's statu s upon admission and devise an individualized program for Gait Training, and Wheel Chair mobility Inability to transfer - to improve, our physical therapists will perform initial evaluation of pt's status upon admission and devise an individualized program for Bed mobility Need for home safety evaluation - to improve, our physical therapists will perform initial evaluatio n of pt's status upon admission and devise an individualized program for Home Evaluation Need in caregiver upon discharge - to improve, our physical therapists will perform initial evaluati on of pt's status upon admission and devise an individualized program for Caregiver Training New precaution - to improve, our physical therapists will perform initial evaluation of pt's status upon admission and devise an individualized program for Patient precaution education Poor balance - to improve, our physical therapists will perform initial evaluation of pt's status up on admission and devise an individualized program for Balance Training Poor endurance - to improve, our physical therapists will perform initial evaluation of pt's status upon admission and devise an individualized program for Endurance Training Weakness - to improve, our physical therapists will perform initial evaluation of pt's status upon a dmission and devise an individualized program for Aquatic Therapy, Neuromuscular Reeducation, and Str engthening Achieving independence - to improve, our physical therapists will perform initial evaluation of pt's status upon admission and devise an individualized program for Community Reintegration Activities - Occupational Therapy ADL deficits - to improve, our occupation therapists will perform initial evaluation of pt's status upon admission and devise an individualized program for Bathing, Bed mobility, Community Reintegratio n, Cooking, Dressing, Eating, Fine Motor Skills, Grooming, Homemaking, Kitchen Mobility, Laundry, Pat ient Education, Safety Awareness, Splinting - Positioning, Transfers(Toilet, Tub, Shower), and Wheel Chair Management Cognitive deficits - to improve, our occupation therapists will perform initial evaluation of pt's s tatus upon admission and devise an individualized program for Cognition - orientation Need for day care provider - to improve, our occupation therapists will perform initial evaluation of pt's status upon admission and devise an individualized program for Caregiver Training Weakness - to improve, our occupation therapists will perform initial evaluation of pt's status upon admission and devise an individualized program for Aquatic Therapy, Balance, Endurance, UE ROM, and UE strengthening - Other See attached MAR (Medication Administration Record) - Diet Type Continue Regular - Diet - Liquid Texture Continue Regular - Tube Feed Continue N/A - Bladder care per protocol - Weight Bearing Precaution WBAT left LE - Skin care per protocol - Diet - Solid Texture Continue Regular - Shower allowing shower for Dementia, TBI, Stroke, or others FUNCTIONAL STATUS: UPDATED AT WEEKLY TEAM CONFERENCE - Bladder Same accident frequency: 7-Ind - No accidents in the past 7 days - Bowel Same accident frequency: 7-Ind - No accidents in the past 7 days - Walking Same score based on distance walked: 0(N/A) Same score based on distance walked: 1(<=50ft) - Wheelchair Same score based on distance traveled: 0(N/A) FUNCTIONAL STATUS: - Self-Care A. Eating modA B. Grooming sup C. Bathing Richard D. Dressing - Upper sup E. Dressing - Lower Richard F. Toileting sup - Sphincter Control G. Bladder control Kathie H. Bowel control Kathie - Transfers Control I. Bed/Chair/Wheelchair Kathie J. Toilet Kathie K. Tub/Shower Richard - Locomotion L. Walk/Wheelchair (B) sup M. Stairs modA - Communication N. Comprehension (B) sup O. Expression (B) sup - Social Cognition P. Social Interaction Ind Q. Problem Solving sup R. Memory Kathie - Endurance Good - Balance Good - Safety Awareness Good QI SCORES: - Self-Care A. Eating 09-Not applicable B. Oral hygiene 02-Substantial/maximal assistance C. Toileting hygiene 02-Substantial/maximal assistance E. Shower/bathe self 01-Dependent F. Upper body dressing 02-Substantial/maximal assistance G. Lower body dressing 01-Dependent H. Putting on/taking off footwear 88-Not attempted due to medical condition or safety concerns - Mobility A. Roll left and right 03-Partial/moderate assistance B. Sit to lying 03-Partial/moderate assistance C. Lying to sitting on side of bed 03-Partial/moderate assistance D. Sit to stand 03-Partial/moderate assistance E. Chair/pzp-da-omlet transfer 01-Dependent F. Toilet transfer 01-Dependent G. Car transfer 88-Not attempted due to medical condition or safety concerns I. Walk 10 feet 02-Substantial/maximal assistance J. Walk 50 feet with two turns 88-Not attempted due to medical condition or safety concerns K. Walk 150 feet 88-Not attempted due to medical condition or safety concerns L. Walking 10 feet on uneven surfaces 88-Not attempted due to medical condition or safety concerns M. 1 step (curb) 88-Not attempted due to medical condition or safety concerns N. 4 steps 88-Not attempted due to medical condition or safety concerns O. 12 steps 88-Not attempted due to medical condition or safety concerns P. Picking up object 88-Not attempted due to medical condition or safety concerns R. Wheel 50 feet with two turns 88-Not attempted due to medical condition or safety concerns S. Wheel 150 feet 88-Not attempted due to medical condition or safety concerns - Bladder and Bowel Bladder continence Bowel continence - Endurance Poor - Balance Poor - Safety Awareness Poor CURRENT FUNC. DEFICITS: Mobility, Endurance, Balance, Safety Awareness, and Self-Care SIGNATURE PANEL: (TEST ENGINE OPERATOR)
[2021-06-17] MEDS: AMITRIPTYLINE 25 MG TAB PO SCH (19:55)
[2021-06-17] MEDS: DOCUSATE NA/SENNA CONC 1 TAB FT PRN (20:00)
[2021-06-18] MEDS: INSULIN -REGULAR HUMAN 50 UNIT/0.5 ML ML SQ SCH ×4 (06:56→20:03)
[2021-06-18] MEDS: APIXABAN 2.5 MG TABLET PO SCH ×2 (08:26→19:43)
[2021-06-18] MEDS: ASPIRIN 81 MG CHEWABLE TABLET FT SCH (08:26)
[2021-06-18] MEDS: GABAPENTIN 300 MG CAP PO SCH ×2 (08:27→19:43)
[2021-06-18] MEDS: LOSARTAN POTASSIUM 50 MG TABLET FT SCH ×2 (08:27→19:43)
[2021-06-18] MEDS: AMLODIPINE 5 MG TAB FT SCH (12:55)
--- NOTE | 2021-06-18 17:30 | R.PN ---
PROGRESS NOTES ENCOUNTER DATE AND TIME: 06/18/2021 17:24 (NATURAL RESOURCES TECHNICIAN) NAME SANJUANA SANTORO DATE OF : 1970 DATE OF ADMISSION: 06/08/2021 16:55 (NATURAL RESOURCES TECHNICIAN) STROKECHIEF COMPLAINT: Stroke, left arm paresis, dysarthria, dysphagia, trach collar is in place SUBJECTIVE: Pt denied any depression. Pt denied any Shortness of Breath. CBC with diff show mildly low Hgb of 11.3, glucose 104 to 152. UA shows 20-50 bacteria, COVID-19 nega tive. Chest x-ray shows no acute cardiopulmonary disease. Ambulated 1500' with modified independence using a straight cane and 2L O2. Up and down 15 steps wit h supervision. Trach was removed last week. He is doing well with much less secretion on Elavil 50 mg at night. Now consuming dry solid with nectar thick liquids. She has no overt aspiration with 13 of 15 trials o f swallowing. VITAL SIGNS Temperature: 97.6 F SBP/DBP: 136/100 Pulse: 69 Resp: 16 MEDICATION ALLERGIES: PENICILLIN ENVIRONMENTAL ALLERGIES: - Substance Allergies None Known - Other Allergies None Known NURSING: - Shower allowing shower - Bladder care per protocol - Skin care per protocol PRECAUTIONS: - Weight Bearing Precaution WBAT right LE ACTIVITIES OOB only with supervision THERAPIES: - Dietary and Nutrition Adequate Nutrition. Nutritional Education. Nutritional Supplements. Evaluate and Treat. - Occupational Therapy Cognitive Retraining. Visual Perceptual Training. Patient/Family Education. ADL Training. Safety Awar eness. Evaluate and Treat. Adaptive Equipment. - Speech Therapy Cognitive Training. Expressive Language Skills. Memory Strategies. Receptive Language Skills. Evaluat e and Treat. Speech Intelligibility Training. - Physical Therapy Mobility Training. Gait Training. Safety Awareness. Transfer Training. Balance Training. Evaluate and Treat. LE Strengthening. Patient/Family Education. PHYSICAL EXAM - Gen Alert and awake Lying in bed No apparent distress Oriented to: person, time, and place - Skin No breakdown No abnormalities - Eyes No abnormalities - ENMT Trach collar is in place - Neck Trach collar is in place - CVS RRR - Chest Upper airway congestion. - Resp Bilateral congestion. - Abd Soft - GI Non distended Deferred - No abnormalities - Ext Dense left arm paresis. - MSK Dense left arm paresis. - Neuro 0/5 strength left lower extremity. - Psych No abnormalities ASSESSMENT: Pt. is a 51 yo Right-handed male.On 05/11/2021 Pt. presented to [facility] with sudden onset of right-side weakness.On 05/11/2021 he was admitted to [facility] with diagnosis STROKE.His impa irment category is Stroke 01 - Right Body (Left Brain) (01.2).Pre-morbidly, Pt. was independent/mod- I in Locomotion, Safety Awareness, Social Cognition, Balance, and Transfers Control; and he had good Sphincter Control, Self-Care, Communication, and Endurance.Currently, he has deficits of Locomotion, Safety Awareness, Social Cognition, Balance, Transfers Control, Sphincter Control, Self-Care, Communi cation, and Endurance.Pt. is now referred to [facility] for acute in-patient r ehabilitation in order to maximize patient's functional independence in activities of daily living, s trength, ROM, and mobility.- Rehab Goal Patient has realistic goal of being discharged at assistance level CGA-to-Richard to reside at Home with Family/Relatives. MDM/PLAN: - Physical Therapy Gait dysfunction - to improve, our physical therapists will perform initial evaluation of pt's statu s upon admission and devise an individualized program for Gait Training, and Wheel Chair mobility Inability to transfer - to improve, our physical therapists will perform initial evaluation of pt's status upon admission and devise an individualized program for Bed mobility Need for home safety evaluation - to improve, our physical therapists will perform initial evaluatio n of pt's status upon admission and devise an individualized program for Home Evaluation Need in caregiver upon discharge - to improve, our physical therapists will perform initial evaluati on of pt's status upon admission and devise an individualized program for Caregiver Training New precaution - to improve, our physical therapists will perform initial evaluation of pt's status upon admission and devise an individualized program for Patient precaution education Poor balance - to improve, our physical therapists will perform initial evaluation of pt's status up on admission and devise an individualized program for Balance Training Poor endurance - to improve, our physical therapists will perform initial evaluation of pt's status upon admission and devise an individualized program for Endurance Training Weakness - to improve, our physical therapists will perform initial evaluation of pt's status upon a dmission and devise an individualized program for Aquatic Therapy, Neuromuscular Reeducation, and Str engthening Achieving independence - to improve, our physical therapists will perform initial evaluation of pt's status upon admission and devise an individualized program for Community Reintegration Activities - Occupational Therapy ADL deficits - to improve, our occupation therapists will perform initial evaluation of pt's status upon admission and devise an individualized program for Bathing, Bed mobility, Community Reintegratio n, Cooking, Dressing, Eating, Fine Motor Skills, Grooming, Homemaking, Kitchen Mobility, Laundry, Pat ient Education, Safety Awareness, Splinting - Positioning, Transfers(Toilet, Tub, Shower), and Wheel Chair Management Cognitive deficits - to improve, our occupation therapists will perform initial evaluation of pt's s tatus upon admission and devise an individualized program for Cognition - orientation Need for healthcare consultant - to improve, our occupation therapists will perform initial evaluation of pt's status upon admission and devise an individualized program for Caregiver Training Weakness - to improve, our occupation therapists will perform initial evaluation of pt's status upon admission and devise an individualized program for Aquatic Therapy, Balance, Endurance, UE ROM, and UE strengthening - Other See attached MAR (Medication Administration Record) - Diet Type Continue Regular - Diet - Liquid Texture Continue Regular - Tube Feed Continue N/A - Bladder care per protocol - Weight Bearing Precaution WBAT left LE - Skin care per protocol - Diet - Solid Texture Continue Regular - Shower allowing shower for Dementia, TBI, Stroke, or others FUNCTIONAL STATUS: UPDATED AT WEEKLY TEAM CONFERENCE - Bladder Same accident frequency: 7-Ind - No accidents in the past 7 days - Bowel Same accident frequency: 7-Ind - No accidents in the past 7 days - Walking Same score based on distance walked: 0(N/A) Same score based on distance walked: 1(<=50ft) - Wheelchair Same score based on distance traveled: 0(N/A) FUNCTIONAL STATUS: - Self-Care A. Eating modA B. Grooming sup C. Bathing Richard D. Dressing - Upper sup E. Dressing - Lower Richard F. Toileting sup - Sphincter Control G. Bladder control Kathie H. Bowel control Kathie - Transfers Control I. Bed/Chair/Wheelchair Kathie J. Toilet Kathie K. Tub/Shower Richard - Locomotion L. Walk/Wheelchair (B) sup M. Stairs modA - Communication N. Comprehension (B) sup O. Expression (B) sup - Social Cognition P. Social Interaction Ind Q. Problem Solving sup R. Memory Kathie - Endurance Good - Balance Good - Safety Awareness Good QI SCORES: - Self-Care A. Eating 09-Not applicable B. Oral hygiene 02-Substantial/maximal assistance C. Toileting hygiene 02-Substantial/maximal assistance E. Shower/bathe self 01-Dependent F. Upper body dressing 02-Substantial/maximal assistance G. Lower body dressing 01-Dependent H. Putting on/taking off footwear 88-Not attempted due to medical condition or safety concerns - Mobility A. Roll left and right 03-Partial/moderate assistance B. Sit to lying 03-Partial/moderate assistance C. Lying to sitting on side of bed 03-Partial/moderate assistance D. Sit to stand 03-Partial/moderate assistance E. Chair/lbe-dr-htzzq transfer 01-Dependent F. Toilet transfer 01-Dependent G. Car transfer 88-Not attempted due to medical condition or safety concerns I. Walk 10 feet 02-Substantial/maximal assistance J. Walk 50 feet with two turns 88-Not attempted due to medical condition or safety concerns K. Walk 150 feet 88-Not attempted due to medical condition or safety concerns L. Walking 10 feet on uneven surfaces 88-Not attempted due to medical condition or safety concerns M. 1 step (curb) 88-Not attempted due to medical condition or safety concerns N. 4 steps 88-Not attempted due to medical condition or safety concerns O. 12 steps 88-Not attempted due to medical condition or safety concerns P. Picking up object 88-Not attempted due to medical condition or safety concerns R. Wheel 50 feet with two turns 88-Not attempted due to medical condition or safety concerns S. Wheel 150 feet 88-Not attempted due to medical condition or safety concerns - Bladder and Bowel Bladder continence Bowel continence - Endurance Poor - Balance Poor - Safety Awareness Poor CURRENT FUNC. DEFICITS: Mobility, Endurance, Balance, Safety Awareness, and Self-Care SIGNATURE PANEL: (NATURAL RESOURCES TECHNICIAN)
[2021-06-18] MEDS: MAGNESIUM OXIDE 400 MG TAB PO SCH (19:43)
[2021-06-18] MEDS: DOCUSATE NA/SENNA CONC 1 TAB FT PRN (19:44)
[2021-06-18] MEDS: guaiFENesin 100 MG/5 ML UCUP PO PRN (19:44)
[2021-06-18] MEDS: AMITRIPTYLINE 25 MG TAB PO SCH (20:03)
[2021-06-19] MEDS: INSULIN -REGULAR HUMAN 50 UNIT/0.5 ML ML SQ SCH ×4 (07:05→20:39)
[2021-06-19] MEDS: APIXABAN 2.5 MG TABLET PO SCH ×2 (08:08→20:39)
[2021-06-19] MEDS: LOSARTAN POTASSIUM 50 MG TABLET FT SCH ×2 (08:08→20:39)
[2021-06-19] MEDS: ASPIRIN 81 MG CHEWABLE TABLET FT SCH (08:08)
[2021-06-19] MEDS: GABAPENTIN 300 MG CAP PO SCH ×2 (08:08→20:39)
[2021-06-19] MEDS: MAGNESIUM OXIDE 400 MG TAB PO SCH ×2 (08:10→20:39)
[2021-06-19] MEDS: AMLODIPINE 5 MG TAB FT SCH (13:59)
--- NOTE | 2021-06-19 16:25 | R.PN ---
PROGRESS NOTES ENCOUNTER DATE AND TIME: 06/19/2021 16:23 (SYRUPER) NAME SANJUANA SANTORO DATE OF : 1970 DATE OF ADMISSION: 06/08/2021 16:55 (SYRUPER) STROKECHIEF COMPLAINT: Stroke, left arm paresis, dysarthria, dysphagia, trach collar is in place SUBJECTIVE: Pt denied any depression. Pt denied any Shortness of Breath. CBC with diff show mildly low Hgb of 11.3, glucose 123 to 127. UA shows 20-50 bacteria, COVID-19 nega tive. Chest x-ray shows no acute cardiopulmonary disease. Ambulated 1000' with modified independence using a straight cane and 2L O2. Up and down 15 steps wit h supervision. Trach was removed last week. He is doing well with much less secretion on Elavil 50 mg at night. Now consuming dry solid with nectar thick liquids. She has no overt aspiration with 13 of 15 trials o f swallowing. VITAL SIGNS Temperature: 97.6 F SBP/DBP: 135/83 Pulse: 62 Resp: 16 MEDICATION ALLERGIES: PENICILLIN ENVIRONMENTAL ALLERGIES: - Substance Allergies None Known - Other Allergies None Known NURSING: - Shower allowing shower - Bladder care per protocol - Skin care per protocol PRECAUTIONS: - Weight Bearing Precaution WBAT right LE ACTIVITIES OOB only with supervision THERAPIES: - Dietary and Nutrition Adequate Nutrition. Nutritional Education. Nutritional Supplements. Evaluate and Treat. - Occupational Therapy Cognitive Retraining. Visual Perceptual Training. Patient/Family Education. ADL Training. Safety Awar eness. Evaluate and Treat. Adaptive Equipment. - Speech Therapy Cognitive Training. Expressive Language Skills. Memory Strategies. Receptive Language Skills. Evaluat e and Treat. Speech Intelligibility Training. - Physical Therapy Mobility Training. Gait Training. Safety Awareness. Transfer Training. Balance Training. Evaluate and Treat. LE Strengthening. Patient/Family Education. PHYSICAL EXAM - Gen Alert and awake Lying in bed No apparent distress Oriented to: person, time, and place - Skin No breakdown No abnormalities - Eyes No abnormalities - ENMT Trach collar is in place - Neck Trach collar is in place - CVS RRR - Chest Upper airway congestion. - Resp Bilateral congestion. - Abd Soft - GI Non distended Deferred - No abnormalities - Ext Dense left arm paresis. - MSK Dense left arm paresis. - Neuro 0/5 strength left lower extremity. - Psych No abnormalities ASSESSMENT: Pt. is a 51 yo Right-handed male.On 05/11/2021 Pt. presented to [facility] with sudden onset of right-side weakness.On 05/11/2021 he was admitted to [facility] with diagnosis STROKE.His impa irment category is Stroke 01 - Right Body (Left Brain) (01.2).Pre-morbidly, Pt. was independent/mod- I in Locomotion, Safety Awareness, Social Cognition, Balance, and Transfers Control; and he had good Sphincter Control, Self-Care, Communication, and Endurance.Currently, he has deficits of Locomotion, Safety Awareness, Social Cognition, Balance, Transfers Control, Sphincter Control, Self-Care, Communi cation, and Endurance.Pt. is now referred to [facility] for acute in-patient r ehabilitation in order to maximize patient's functional independence in activities of daily living, s trength, ROM, and mobility.- Rehab Goal Patient has realistic goal of being discharged at assistance level CGA-to-Richard to reside at Home with Family/Relatives. MDM/PLAN: - Physical Therapy Gait dysfunction - to improve, our physical therapists will perform initial evaluation of pt's statu s upon admission and devise an individualized program for Gait Training, and Wheel Chair mobility Inability to transfer - to improve, our physical therapists will perform initial evaluation of pt's status upon admission and devise an individualized program for Bed mobility Need for home safety evaluation - to improve, our physical therapists will perform initial evaluatio n of pt's status upon admission and devise an individualized program for Home Evaluation Need in caregiver upon discharge - to improve, our physical therapists will perform initial evaluati on of pt's status upon admission and devise an individualized program for Caregiver Training New precaution - to improve, our physical therapists will perform initial evaluation of pt's status upon admission and devise an individualized program for Patient precaution education Poor balance - to improve, our physical therapists will perform initial evaluation of pt's status up on admission and devise an individualized program for Balance Training Poor endurance - to improve, our physical therapists will perform initial evaluation of pt's status upon admission and devise an individualized program for Endurance Training Weakness - to improve, our physical therapists will perform initial evaluation of pt's status upon a dmission and devise an individualized program for Aquatic Therapy, Neuromuscular Reeducation, and Str engthening Achieving independence - to improve, our physical therapists will perform initial evaluation of pt's status upon admission and devise an individualized program for Community Reintegration Activities - Occupational Therapy ADL deficits - to improve, our occupation therapists will perform initial evaluation of pt's status upon admission and devise an individualized program for Bathing, Bed mobility, Community Reintegratio n, Cooking, Dressing, Eating, Fine Motor Skills, Grooming, Homemaking, Kitchen Mobility, Laundry, Pat ient Education, Safety Awareness, Splinting - Positioning, Transfers(Toilet, Tub, Shower), and Wheel Chair Management Cognitive deficits - to improve, our occupation therapists will perform initial evaluation of pt's s tatus upon admission and devise an individualized program for Cognition - orientation Need for post acute care registered nurse - to improve, our occupation therapists will perform initial evaluation of pt's status upon admission and devise an individualized program for Caregiver Training Weakness - to improve, our occupation therapists will perform initial evaluation of pt's status upon admission and devise an individualized program for Aquatic Therapy, Balance, Endurance, UE ROM, and UE strengthening - Other See attached MAR (Medication Administration Record) - Diet Type Continue Regular - Diet - Liquid Texture Continue Regular - Tube Feed Continue N/A - Bladder care per protocol - Weight Bearing Precaution WBAT left LE - Skin care per protocol - Diet - Solid Texture Continue Regular - Shower allowing shower for Dementia, TBI, Stroke, or others FUNCTIONAL STATUS: UPDATED AT WEEKLY TEAM CONFERENCE - Bladder Same accident frequency: 7-Ind - No accidents in the past 7 days - Bowel Same accident frequency: 7-Ind - No accidents in the past 7 days - Walking Same score based on distance walked: 0(N/A) Same score based on distance walked: 1(<=50ft) - Wheelchair Same score based on distance traveled: 0(N/A) FUNCTIONAL STATUS: - Self-Care A. Eating modA B. Grooming sup C. Bathing Richard D. Dressing - Upper sup E. Dressing - Lower Richard F. Toileting sup - Sphincter Control G. Bladder control Kathie H. Bowel control Kathie - Transfers Control I. Bed/Chair/Wheelchair Kathie J. Toilet Kathie K. Tub/Shower Richard - Locomotion L. Walk/Wheelchair (B) sup M. Stairs modA - Communication N. Comprehension (B) sup O. Expression (B) sup - Social Cognition P. Social Interaction Ind Q. Problem Solving sup R. Memory Kathie - Endurance Good - Balance Good - Safety Awareness Good QI SCORES: - Self-Care A. Eating 09-Not applicable B. Oral hygiene 02-Substantial/maximal assistance C. Toileting hygiene 02-Substantial/maximal assistance E. Shower/bathe self 01-Dependent F. Upper body dressing 02-Substantial/maximal assistance G. Lower body dressing 01-Dependent H. Putting on/taking off footwear 88-Not attempted due to medical condition or safety concerns - Mobility A. Roll left and right 03-Partial/moderate assistance B. Sit to lying 03-Partial/moderate assistance C. Lying to sitting on side of bed 03-Partial/moderate assistance D. Sit to stand 03-Partial/moderate assistance E. Chair/[id number] transfer 01-Dependent F. Toilet transfer 01-Dependent G. Car transfer 88-Not attempted due to medical condition or safety concerns I. Walk 10 feet 02-Substantial/maximal assistance J. Walk 50 feet with two turns 88-Not attempted due to medical condition or safety concerns K. Walk 150 feet 88-Not attempted due to medical condition or safety concerns L. Walking 10 feet on uneven surfaces 88-Not attempted due to medical condition or safety concerns M. 1 step (curb) 88-Not attempted due to medical condition or safety concerns N. 4 steps 88-Not attempted due to medical condition or safety concerns O. 12 steps 88-Not attempted due to medical condition or safety concerns P. Picking up object 88-Not attempted due to medical condition or safety concerns R. Wheel 50 feet with two turns 88-Not attempted due to medical condition or safety concerns S. Wheel 150 feet 88-Not attempted due to medical condition or safety concerns - Bladder and Bowel Bladder continence Bowel continence - Endurance Poor - Balance Poor - Safety Awareness Poor CURRENT FUNC. DEFICITS: Mobility, Endurance, Balance, Safety Awareness, and Self-Care SIGNATURE PANEL: (SYRUPER)
--- NOTE | 2021-06-19 17:39 | P.PN ---
Date of Service: 06/19/21 ENT Progress Note Patient seen and examined. He reports that tracheal stoma is closing, albeit slowly. He is having some clear drainage but no purulence, pain, swelling, or bleeding. Swallowing and voice are improved from last visit. No aspiration, coughing, or regurgitation. Exam: Neck-- dressing removed, excellent granulation tissue, no dehiscence or bleeding. Xeroform dressing placed and covered with gauze. Impression: 1. 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 Status post tracheostomy tube removal last week. 2. Neurogenic dysphagia-- improved. Plan: 1. Tracheal stomal wound care instructions given to nurse and patient. Keep stoma covered with xeroform and compressive dressing. 2. Continue swallowing therapy and current diet recommendations. 4. Will followup outpatient 1-2 weeks in my clinic for stomal exam and to assess vocal folds and swallowing with flexible laryngoscopy.
[2021-06-19 21:12] VITALS: O2SAT 92
[2021-06-20 04:54] LABS: Absolute Lymphocytes (CBC) 2.3 K/uL (0.7-4.9); Hematocrit 35.8 % (39.6-49.0); Lymphocytes % 23.4 % (15.3-44.8); MPV 7.4 fL (7.6-11.3)
[2021-06-20 05:20] LABS: Albumin 3.1 g/dL (3.4-5.0); BUN Blood Urea Nitrogen 7 mg/dL (7-18); Bicarbonate 30 mmol/L (21-32); Glucose Level 108 mg/dL (74-106); Magnesium 1.8 mg/dL (1.8-2.4); Phosphorus 3.8 mg/dL (2.5-4.9); Potassium 3.1 mmol/L (3.5-5.1); Prealbumin 20.6 mg/dL (20-40); Sodium Level 140 mmol/L (136-145)
[2021-06-20] MEDS: INSULIN -REGULAR HUMAN 50 UNIT/0.5 ML ML SQ SCH ×4 (07:30→20:17)
[2021-06-20] MEDS: ASPIRIN 81 MG CHEWABLE TABLET FT SCH (08:06)
[2021-06-20] MEDS: APIXABAN 2.5 MG TABLET PO SCH ×2 (08:06→20:04)
[2021-06-20] MEDS: GABAPENTIN 300 MG CAP PO SCH ×2 (08:06→20:20)
[2021-06-20] MEDS: MAGNESIUM OXIDE 400 MG TAB PO SCH ×2 (08:07→20:09)
[2021-06-20] MEDS: LOSARTAN POTASSIUM 50 MG TABLET FT SCH ×2 (08:07→20:04)
[2021-06-20] MEDS: AMLODIPINE 5 MG TAB FT SCH (12:46)
--- NOTE | 2021-06-20 16:25 | RAD REPORT ---
EXAM DESCRIPTION: US - Extremity Venous Uni Ltd - 06/20/2021 4:12 pm CLINICAL HISTORY: History DVT COMPARISON: None. TECHNIQUE: Real-time sonographic evaluation of the left lower extremity deep venous system was perfo rmed. FINDINGS: Normal compressibility, flow augmentation, phasic flow and spontaneous flow is identified in the left lower extremity deep venous system. No intraluminal filling defects seen. IMPRESSION: No DVT in the left lower extremity.
--- NOTE | 2021-06-20 18:17 | R.PN ---
PROGRESS NOTES ENCOUNTER DATE AND TIME: 06/20/2021 18:09 (PROGRAM DIRECTOR SCOUTING) NAME SNAJUANA SANTORO DATE OF : 1970 DATE OF ADMISSION: 06/08/2021 16:55 (PROGRAM DIRECTOR SCOUTING) STROKECHIEF COMPLAINT: Stroke, left arm paresis, dysarthria, dysphagia, trach collar is in place SUBJECTIVE: Pt denied any depression. Pt denied any Shortness of Breath. CBC with diff show mildly low Hgb of 12.6, glucose 103 to 118. K is low at 3.1. UA shows 20-50 bacter ia, COVID-19 negative. Chest x-ray shows no acute cardiopulmonary disease. Ambulated 1000' with independence using a straight cane and 2L O2. Up and down 15 steps with supervi celso. Trach was removed last week. He is doing well with much less secretion. Discontinue Elavil 50 mg at n ight. Now consuming dry solid with nectar thick liquids. She has no overt aspiration with 13 of 15 trials o f swallowing. VITAL SIGNS Temperature: 97.3 F SBP/DBP: 132/90 Pulse: 65 Resp: 16 MEDICATION ALLERGIES: PENICILLIN ENVIRONMENTAL ALLERGIES: - Substance Allergies None Known - Other Allergies None Known NURSING: - Shower allowing shower - Bladder care per protocol - Skin care per protocol PRECAUTIONS: - Weight Bearing Precaution WBAT right LE ACTIVITIES OOB only with supervision THERAPIES: - Dietary and Nutrition Adequate Nutrition. Nutritional Education. Nutritional Supplements. Evaluate and Treat. - Occupational Therapy Cognitive Retraining. Visual Perceptual Training. Patient/Family Education. ADL Training. Safety Awar eness. Evaluate and Treat. Adaptive Equipment. - Speech Therapy Cognitive Training. Expressive Language Skills. Memory Strategies. Receptive Language Skills. Evaluat e and Treat. Speech Intelligibility Training. - Physical Therapy Mobility Training. Gait Training. Safety Awareness. Transfer Training. Balance Training. Evaluate and Treat. LE Strengthening. Patient/Family Education. PHYSICAL EXAM - Gen Alert and awake Lying in bed No apparent distress Oriented to: person, time, and place - Skin No breakdown No abnormalities - Eyes No abnormalities - ENMT Trach collar is in place - Neck Trach collar is in place - CVS RRR - Chest Upper airway congestion. - Resp Bilateral congestion. - Abd Soft - GI Non distended Deferred - No abnormalities - Ext Dense left arm paresis. - MSK Dense left arm paresis. - Neuro 0/5 strength left lower extremity. - Psych No abnormalities ASSESSMENT: Pt. is a 51 yo Right-handed male.On 05/11/2021 Pt. presented to [facility] with sudden onset of right-side weakness.On 05/11/2021 he was admitted to [facility] with diagnosis STROKE.His impa irment category is Stroke 01 - Right Body (Left Brain) (01.2).Pre-morbidly, Pt. was independent/mod- I in Locomotion, Safety Awareness, Social Cognition, Balance, and Transfers Control; and he had good Sphincter Control, Self-Care, Communication, and Endurance.Currently, he has deficits of Locomotion, Safety Awareness, Social Cognition, Balance, Transfers Control, Sphincter Control, Self-Care, Communi cation, and Endurance.Pt. is now referred to [facility] for acute in-patient r ehabilitation in order to maximize patient's functional independence in activities of daily living, s trength, ROM, and mobility.- Rehab Goal Patient has realistic goal of being discharged at assistance level CGA-to-Richard to reside at Home with Family/Relatives. MDM/PLAN: - Physical Therapy Gait dysfunction - to improve, our physical therapists will perform initial evaluation of pt's statu s upon admission and devise an individualized program for Gait Training, and Wheel Chair mobility Inability to transfer - to improve, our physical therapists will perform initial evaluation of pt's status upon admission and devise an individualized program for Bed mobility Need for home safety evaluation - to improve, our physical therapists will perform initial evaluatio n of pt's status upon admission and devise an individualized program for Home Evaluation Need in caregiver upon discharge - to improve, our physical therapists will perform initial evaluati on of pt's status upon admission and devise an individualized program for Caregiver Training New precaution - to improve, our physical therapists will perform initial evaluation of pt's status upon admission and devise an individualized program for Patient precaution education Poor balance - to improve, our physical therapists will perform initial evaluation of pt's status up on admission and devise an individualized program for Balance Training Poor endurance - to improve, our physical therapists will perform initial evaluation of pt's status upon admission and devise an individualized program for Endurance Training Weakness - to improve, our physical therapists will perform initial evaluation of pt's status upon a dmission and devise an individualized program for Aquatic Therapy, Neuromuscular Reeducation, and Str engthening Achieving independence - to improve, our physical therapists will perform initial evaluation of pt's status upon admission and devise an individualized program for Community Reintegration Activities - Occupational Therapy ADL deficits - to improve, our occupation therapists will perform initial evaluation of pt's status upon admission and devise an individualized program for Bathing, Bed mobility, Community Reintegratio n, Cooking, Dressing, Eating, Fine Motor Skills, Grooming, Homemaking, Kitchen Mobility, Laundry, Pat ient Education, Safety Awareness, Splinting - Positioning, Transfers(Toilet, Tub, Shower), and Wheel Chair Management Cognitive deficits - to improve, our occupation therapists will perform initial evaluation of pt's s tatus upon admission and devise an individualized program for Cognition - orientation Need for career placement specialist - to improve, our occupation therapists will perform initial evaluation of pt's status upon admission and devise an individualized program for Caregiver Training Weakness - to improve, our occupation therapists will perform initial evaluation of pt's status upon admission and devise an individualized program for Aquatic Therapy, Balance, Endurance, UE ROM, and UE strengthening - Other See attached MAR (Medication Administration Record) - Diet Type Continue Regular - Diet - Liquid Texture Continue Regular - Tube Feed Continue N/A - Bladder care per protocol - Weight Bearing Precaution WBAT left LE - Skin care per protocol - Diet - Solid Texture Continue Regular - Shower allowing shower for Dementia, TBI, Stroke, or others FUNCTIONAL STATUS: UPDATED AT WEEKLY TEAM CONFERENCE - Bladder Same accident frequency: 7-Ind - No accidents in the past 7 days - Bowel Same accident frequency: 7-Ind - No accidents in the past 7 days - Walking Same score based on distance walked: 0(N/A) Same score based on distance walked: 1(<=50ft) - Wheelchair Same score based on distance traveled: 0(N/A) FUNCTIONAL STATUS: - Self-Care A. Eating modA B. Grooming sup C. Bathing Richard D. Dressing - Upper sup E. Dressing - Lower Richard F. Toileting sup - Sphincter Control G. Bladder control Kathie H. Bowel control Kathie - Transfers Control I. Bed/Chair/Wheelchair Kathie J. Toilet Kathie K. Tub/Shower Richard - Locomotion L. Walk/Wheelchair (B) sup M. Stairs modA - Communication N. Comprehension (B) sup O. Expression (B) sup - Social Cognition P. Social Interaction Ind Q. Problem Solving sup R. Memory Kathie - Endurance Good - Balance Good - Safety Awareness Good QI SCORES: - Self-Care A. Eating 09-Not applicable B. Oral hygiene 02-Substantial/maximal assistance C. Toileting hygiene 02-Substantial/maximal assistance E. Shower/bathe self 01-Dependent F. Upper body dressing 02-Substantial/maximal assistance G. Lower body dressing 01-Dependent H. Putting on/taking off footwear 88-Not attempted due to medical condition or safety concerns - Mobility A. Roll left and right 03-Partial/moderate assistance B. Sit to lying 03-Partial/moderate assistance C. Lying to sitting on side of bed 03-Partial/moderate assistance D. Sit to stand 03-Partial/moderate assistance E. Chair/[id number] transfer 01-Dependent F. Toilet transfer 01-Dependent G. Car transfer 88-Not attempted due to medical condition or safety concerns I. Walk 10 feet 02-Substantial/maximal assistance J. Walk 50 feet with two turns 88-Not attempted due to medical condition or safety concerns K. Walk 150 feet 88-Not attempted due to medical condition or safety concerns L. Walking 10 feet on uneven surfaces 88-Not attempted due to medical condition or safety concerns M. 1 step (curb) 88-Not attempted due to medical condition or safety concerns N. 4 steps 88-Not attempted due to medical condition or safety concerns O. 12 steps 88-Not attempted due to medical condition or safety concerns P. Picking up object 88-Not attempted due to medical condition or safety concerns R. Wheel 50 feet with two turns 88-Not attempted due to medical condition or safety concerns S. Wheel 150 feet 88-Not attempted due to medical condition or safety concerns - Bladder and Bowel Bladder continence Bowel continence - Endurance Poor - Balance Poor - Safety Awareness Poor CURRENT FUNC. DEFICITS: Mobility, Endurance, Balance, Safety Awareness, and Self-Care SIGNATURE PANEL: (PROGRAM DIRECTOR SCOUTING)
[2021-06-20] MEDS ORDERED: POTASSIUM CL SA 10 MEQ TAB PO ONE (19:00)
[2021-06-20] MEDS: MELATONIN 3 MG TABLET PO PRN (20:09)
[2021-06-21] MEDS: INSULIN -REGULAR HUMAN 50 UNIT/0.5 ML ML SQ SCH ×3 (07:30→16:30)
[2021-06-21 07:44] VITALS: TEMP 97
[2021-06-21] MEDS ORDERED: POTASSIUM CL SA 10 MEQ TAB PO SCH (08:00)
[2021-06-21] MEDS: GABAPENTIN 300 MG CAP PO SCH (08:15)
[2021-06-21] MEDS: ASPIRIN 81 MG CHEWABLE TABLET FT SCH (08:16)
[2021-06-21] MEDS: MAGNESIUM OXIDE 400 MG TAB PO SCH (08:16)
[2021-06-21] MEDS: LOSARTAN POTASSIUM 50 MG TABLET FT SCH (08:16)
[2021-06-21] MEDS: APIXABAN 2.5 MG TABLET PO SCH (08:16)
--- NOTE | 2021-06-21 09:57 | P.RH.PN ---
Estimated Length of Stay: 18 Expected Discharge Date: 06/25/21 Vital Signs: Last Vital Signs Temp 97.0 F 06/21/21 07:42 Pulse 73 06/21/21 07:42 Resp 14 06/21/21 07:42 BP 153/106 H 06/21/21 07:42 Pulse Ox 97 06/21/21 07:42 Laboratory: Laboratory Last Values WBC 9.70 K/uL (4.3-10.9) 06/20/21 04:18 RBC 4.30 M/uL (4.33-5.43) L 06/20/21 04:18 Hgb 12.6 g/dL (13.6-17.9) L 06/20/21 04:18 Hct 35.8 % (39.6-49.0) L 06/20/21 04:18 MCV 83.4 fL (80-100) 06/20/21 04:18 MCH 29.2 pg (27.0-35.0) 06/20/21 04:18 MCHC 35.0 g/dL (32.0-36.0) 06/20/21 04:18 RDW 12.6 % (12.1-15.2) 06/20/21 04:18 Plt Count 321 K/uL (152-406) 06/20/21 04:18 MPV 7.4 fL (7.6-11.3) L 06/20/21 04:18 Neutrophils % 56.1 % (41.7-73.7) 06/20/21 04:18 Lymphocytes % 23.4 % (15.3-44.8) 06/20/21 04:18 Monocytes % 8.7 % (3.3-12.3) 06/20/21 04:18 Eosinophils % 11.2 % (0-4.4) H 06/20/21 04:18 Basophils % 0.6 % (0-1.3) 06/20/21 04:18 Absolute Neutrophils 5.4 K/uL (1.8-8.0) 06/20/21 04:18 Segmented Neutrophils 52 % (40-80) 06/08/21 08:05 Band Neutrophils 3 % (0-1) H 06/08/21 08:05 Absolute Lymphocytes 2.3 K/uL (0.7-4.9) 06/20/21 04:18 Lymphocytes 17 % (15-42) 06/08/21 08:05 Monocytes 11 % (0-10) H 06/08/21 08:05 Absolute Monocytes 0.8 K/uL (0.1-1.3) 06/20/21 04:18 Eosinophils 9 % (0-3) H 06/08/21 08:05 Absolute Eosinophils 1.1 K/uL (0-0.5) H 06/20/21 04:18 Absolute Basophils 0.1 K/uL (0-0.5) 06/20/21 04:18 Metamyelocytes 3 % (0-0) H 06/08/21 08:05 Myelocytes 3 % (0-0) H 06/08/21 08:05 Reactive Lymphocytes 2 % 06/08/21 08:05 Platelet Estimate Adeq 06/08/21 08:05 Morphology Comment Not seen (NOT SEEN) 06/08/21 08:05 Sodium 140 mmol/L (136-145) 06/20/21 04:18 Potassium 3.1 mmol/L (3.5-5.1) L 06/20/21 04:18 Chloride 104 mmol/L (98-107) 06/20/21 04:18 Carbon Dioxide 30 mmol/L (21-32) 06/20/21 04:18 BUN 7 mg/dL (7-18) 06/20/21 04:18 Creatinine 0.57 mg/dL (0.55-1.3) 06/20/21 04:18 Estimated GFR > 90 mL/min (=/>90) 06/20/21 04:18 Glucose 108 mg/dL (74-106) H 06/20/21 04:18 POC Glucose 129 mg/dL (65-120) H 06/21/21 07:02 Calcium 9.1 mg/dL (8.5-10.1) 06/20/21 04:18 Phosphorus 3.8 mg/dL (2.5-4.9) 06/20/21 04:18 Magnesium 1.8 mg/dL (1.8-2.4) 06/20/21 04:18 Albumin 3.1 g/dL (3.4-5.0) L 06/20/21 04:18 Prealbumin 20.6 mg/dL (20-40) 06/20/21 04:18 Urine Color Yellow (Yellow) 06/08/21 03:45 Urine Appearance Clear (Clear) 06/08/21 03:45 Urine pH 8.0 (5.0-7.0) H 06/08/21 03:45 Ur Specific [place] 1.010 (1.005-1.030) 06/08/21 03:45 Glucose (UA)(Auto) Negative (Negative) 06/08/21 03:45 Urine Ketones Negative (Negative) 06/08/21 03:45 Urine Blood Negative (Negative) 06/08/21 03:45 Urine Nitrite Negative (Negative) 06/08/21 03:45 Urine Bilirubin Negative (Negative) 06/08/21 03:45 Urine Urobilinogen 1.0 mg/dL (0.2-1.0) 06/08/21 03:45 Ur Leukocyte Esterase Negative (Negative) 06/08/21 03:45 Urine RBC <5 /HPF (NONE SEEN) 06/08/21 03:45 Urine WBC <5 /HPF (<5) 06/08/21 03:45 Ur Squamous Epith Cells <5 /HPF (NONE SEEN) 06/08/21 03:45 Urine Bacteria 20-50 /HPF (NONE SEEN) H 06/08/21 03:45 Urine Culture Reflexed Not needed 06/08/21 03:45 Urine Total Protein Negative (Negative) 06/08/21 03:45 SARS-CoV-2 Rap RNA(RT-PCR) Negative (NEGATIVE) 06/15/21 05:35 Weight: 225 lb Wound Present: No Closed Surgical Incision Present: No Negative Pressure Wound Therapy Present: No Physician Update: He is making good overall progress with therapy. He may be able to go home today if the MBS is good to go with thin liquids and regular consistency. Independent with bed mobility, transfers, stairs and many ADLs. Independent with groom, lower body dressing, showering. Comment: 3/6 Peg tube clean and dry; dressing changed. Functional Improvement: Patient has met all short-term and long-term goals, w/ the exceptions of a car transfer and unlevel gait training. Will attempt to address multi-terrain gait tx. in sessions to come. Summary: Patient's care plan and intermediate goals have been reviewed and revised as necessary. Please see the Rehabilitation Signature page for all necessary signatures.
--- NOTE | 2021-06-21 10:28 | RAD REPORT ---
EXAM DESCRIPTION: RAD - Barium Swallow Modified - 06/21/2021 9:59 am CLINICAL HISTORY: Check on swallowingHX OF PEG TUBE, TRACH REMOVAL COMPARISON: Barium Swallow Modified dated 06/11/2021 TECHNIQUE: The patient was given liquid, semi-solid and solid forms of barium. Lateral view fluorosc opic imaging was performed in conjunction with speech pathology service. FINDINGS: LARYNGEAL PENETRATION: CLEARED WITH THIN AND NECTAR Aspiration: NO cough with thin by cup sequential sips 2 second swallow delay w/ all liquids, decreased hyloaryngeal excursion, and minimal epiglottic defle ction Total fluoroscopy time: 2 minutes 12 seconds
[2021-06-21] MEDS: AMLODIPINE 5 MG TAB FT SCH (12:59)
[2021-06-21 13:01] VITALS: BP 138/89
--- NOTE | 2021-06-26 16:53 | R.DS ---
DISCHARGE SUMMARY FACILITY [facility] MR# [id number] NAME SANJUANA SANTORO ADDRESS [address] [facility] [place] [address] PHONE DATE OF 1970 AGE 51 SSN# [id number] GENDER Male MARITAL STATUS ENCOUNTER PHYSICIAN Dr. Arun Clements M.D. REFERRING DOCTOR KEATON JETER MD REFERRING FACILITY [facility] DISCHARGE DIAGNOSIS: - Stroke 01 - Right Body (Left Brain) (01.2) STROKE. DATE OF ADMISSION 06/08/2021 16:55 (FLOORHAND) MEDICATION ALLERGIES: PENICILLIN ENVIRONMENTAL ALLERGIES: - Substance Allergies None Known - Other Allergies None Known DISCHARGE MEDICATIONS: Other- ContinueSee attached MAR (Medication Administration Record). NURSING: - Shower allowing shower - Bladder care per protocol - Skin care per protocol PRECAUTIONS: - Weight Bearing Precaution WBAT right LE ACTIVITIES OOB only with supervision THERAPIES: - Dietary and Nutrition Adequate Nutrition Nutritional Education Nutritional Supplements Evaluate and Treat - Occupational Therapy Cognitive Retraining Visual Perceptual Training Patient/Family Education ADL Training Safety Awareness Evaluate and Treat Adaptive Equipment - Speech Therapy Cognitive Training Expressive Language Skills Memory Strategies Receptive Language Skills Evaluate and Treat Speech Intelligibility Training - Physical Therapy Mobility Training Gait Training Safety Awareness Transfer Training Balance Training Evaluate and Treat LE Strengthening Patient/Family Education HISTORY OF PRESENT ILLNESS: Pt. is a 51 yo Right-handed male.On 05/11/2021 Pt. presented to [facility] with sudden onset of right-side weakness.On 05/11/2021 he was admitted to [facility] with diagnosis STROKE.His impa irment category is Stroke 01 - Right Body (Left Brain) (01.2).Pre-morbidly, Pt. was independent/mod- I in Locomotion, Safety Awareness, Social Cognition, Balance, and Transfers Control; and he had good Sphincter Control, Self-Care, Communication, and Endurance.Currently, he has deficits of Locomotion, Safety Awareness, Social Cognition, Balance, Transfers Control, Sphincter Control, Self-Care, Communi cation, and Endurance.Pt. is now referred to [facility] for acute in-patient r ehabilitation in order to maximize patient's functional independence in activities of daily living, s trength, ROM, and mobility.- Rehab Goal Patient has realistic goal of being discharged at assistance level CGA-to-Richard to reside at Home with Family/Relatives. DIET - LIQUID TEXTURE: On 05/21/2021 Pt was upgraded to Regular Diet - Liquid Texture. DIET - SOLID TEXTURE: On 05/21/2021 Pt was upgraded to Regular Diet - Solid Texture. DIET TYPE: On 05/21/2021 Pt was upgraded to Regular Diet Type. TUBE FEED: On 05/21/2021 Pt was changed to N/A Tube Feed. WEIGHT BEARING PRECAUTION: On 05/21/2021 the following precautions were added for the patient: Weight Bearing Precaution - WBAT right LE. DISCHARGE PHYSICAL EXAM - Gen Alert and awake Lying in bed No apparent distress Oriented to: person, time, and place - Skin No breakdown No abnormalities - Eyes No abnormalities - ENMT Trach collar is in place - Neck Trach collar is in place - CVS RRR - Chest Upper airway congestion. - Resp Bilateral congestion. - Abd Soft - GI Non distended Deferred - No abnormalities - Ext Dense left arm paresis. - MSK Dense left arm paresis. - Neuro 0/5 strength left lower extremity. - Psych No abnormalities FUNCTIONAL STATUS: - Self-Care A. Eating 6-Kathie B. Grooming 6-Kathie C. Bathing 6-Kathie D. Dressing - Upper 6-Kathie E. Dressing - Lower 6-Kathie F. Toileting 6-Kathie - Sphincter Control G. Bladder control 6-Kathie H. Bowel control 6-Kathie - Transfers Control I. Bed/Chair/Wheelchair 6-Kathie J. Toilet 6-Kathie K. Tub/Shower 6-Kathie - Locomotion L. Walk/Wheelchair (B) 6-Kathie M. Stairs 6-Kathie - Communication N. Comprehension (B) 6-Kathie O. Expression (B) 6-Kathie - Social Cognition P. Social Interaction 7-Ind Q. Problem Solving 6-Kathie R. Memory 6-Kathie - Endurance Good - Balance Good - Safety Awareness Good QI SCORES: - Self-Care A. Eating 09-Not applicable B. Oral hygiene 02-Substantial/maximal assistance C. Toileting hygiene 02-Substantial/maximal assistance E. Shower/bathe self 01-Dependent F. Upper body dressing 02-Substantial/maximal assistance G. Lower body dressing 01-Dependent H. Putting on/taking off footwear 88-Not attempted due to medical condition or safety concerns - Mobility A. Roll left and right 03-Partial/moderate assistance B. Sit to lying 03-Partial/moderate assistance C. Lying to sitting on side of bed 03-Partial/moderate assistance D. Sit to stand 03-Partial/moderate assistance E. Chair/[id number] transfer 01-Dependent F. Toilet transfer 01-Dependent G. Car transfer 88-Not attempted due to medical condition or safety concerns I. Walk 10 feet 02-Substantial/maximal assistance J. Walk 50 feet with two turns 88-Not attempted due to medical condition or safety concerns K. Walk 150 feet 88-Not attempted due to medical condition or safety concerns L. Walking 10 feet on uneven surfaces 88-Not attempted due to medical condition or safety concerns M. 1 step (curb) 88-Not attempted due to medical condition or safety concerns N. 4 steps 88-Not attempted due to medical condition or safety concerns O. 12 steps 88-Not attempted due to medical condition or safety concerns P. Picking up object 88-Not attempted due to medical condition or safety concerns R. Wheel 50 feet with two turns 88-Not attempted due to medical condition or safety concerns S. Wheel 150 feet 88-Not attempted due to medical condition or safety concerns - Bladder and Bowel Bladder continence Bowel continence - Endurance Poor - Balance Poor - Safety Awareness Poor DISCHARGE INSTRUCTIONS: - N/A Eliquis 2.5 mg bid, aspirin 81 mg daily. DISCHARGE PLAN, FOLLOW UP CARE PROVISIONS: - Estimated Length of Stay (days) 21. - Consensus on plan Discharge plan has been discussed with primary caregiver. Patient/Family is in agreement with the kori n. Primary caregiver is in agreement with the plan. - Patient/Family Goals Return home with assistance. - Planned Living Setting Upon Discharge Home, to live with Family/Relatives. Transitional Living. SIGNATURE PANEL: (CDT)
== END 2021-06-21 19:15 | disposition home health service (06) | DRG 57 ==
LOC: 5TH 06-07 23:35
PROVIDERS: ADMIT Psychiatry & Neurology Neurology with Special Qualifications in Child Neurology; ATTEND Psychiatry & Neurology Neurology with Special Qualifications in Child Neurology
DX: I69.354 Hemiplegia and hemiparesis following cerebral infarction affecting left non-dominant side (principal); I69.322 Dysarthria following cerebral infarction; I69.391 Dysphagia following cerebral infarction; Z93.0 Tracheostomy status; Z20.822 Contact with and (suspected) exposure to COVID-19; Z88.0 Allergy status to penicillin; E11.9 Type 2 diabetes mellitus without complications
CPT/HCPCS: 36415; 71045; 74230; 80048; 81001; 82040; 82947; 83735; 84100; 84134; 85025; 87086; 87088; 92523; 92526; 92611; 93971; 94640; 97110; 97112; 97116; 97161; 97530; 97542; J1815; U0003